=== PATIENT | female | born 1970 | race Hispanic/Latino ===

== ENCOUNTER 2019-05-17 09:39 | Day surgery (SDC) | payer MEDICARE ==
[2019-05-16 11:58] LABS: Absolute Lymphocytes (CBC) 2.2 K/uL (0.7-4.9); Basophils % 0.6 % (0-1.3); Hematocrit 38.3 % (36.0-45.0); Lymphocytes % 37.1 % (15.3-44.8); RBC Red Blood Cell Count 4.54 M/uL (3.86-4.86)
[2019-05-16 12:14] LABS: BUN Blood Urea Nitrogen 8 mg/dL (7-18); Bicarbonate 25 mmol/L (21-32); Glucose Level 179 mg/dL (74-106); Potassium 3.8 mmol/L (3.5-5.1); Sodium Level 143 mmol/L (136-145)
--- NOTE | 2019-05-16 12:33 | RAD REPORT ---
EXAM DESCRIPTION: RAD - Chest Pa And Lat (2 Views) - 05/16/2019 12:27 pm CLINICAL HISTORY: pre-op for surgery, soft tissue mass removal from the back COMPARISON: CHEST SINGLE VIEW dated 10/09/2011 TECHNIQUE: Frontal and lateral views of the chest were obtained. FINDINGS: The lungs are clear. Heart size is normal and central vasculature is within normal limit s. No pleural effusion or pneumothorax seen. No acute bony finding noted. No aortic abnormality. No significant change from comparison. IMPRESSION: No acute cardiopulmonary process.
--- NOTE | 2019-05-17 08:20 | EKG ---
Test Date: 2019-05-16 Test Time: 11:43:02 Leaf Size Picker: BETO MEASUREMENT RESULTS: Intervals: Rate: 70 MA: 152 QRSD: 90 QT: 414 QTc: 447 [place]: P: 34 MA: 152 QRS: -2 T: 30 INTERPRETIVE STATEMENTS: Normal sinus rhythm Minimal voltage criteria for LVH, may be normal variant Borderline ECG No previous ECG available for comparison Electronically Signed On 05-17-19 08:19:54 DOCTOR OF NURSE ANESTHESIA by Jean Carlos Escobedo
[2019-05-17] MEDS ORDERED: NA CHLORIDE 0.9% 1,000 ML ONE (09:51)
[2019-05-17] MEDS ORDERED: CIPROFLOXACIN 400mg IV 400 MG/200 ML BAG IV ONE (09:51)
[2019-05-17] MEDS ORDERED: BUPIVACAINE 0.5% PF 10 ML VIAL ONE (10:24)
[2019-05-17] MEDS ORDERED: FENTANYL CITR 100 MCG/2 ML ONE (10:28)
[2019-05-17] MEDS ORDERED: MIDAZOLAM HCL 2 MG/2 ML INJ ONE (10:28)
[2019-05-17] MEDS ORDERED: LIDOCAINE 1% MPF 5 ML VIAL ONE (10:28)
[2019-05-17] MEDS ORDERED: propofoL 200 MG/20 ML VIAL IV ONE (10:28)
[2019-05-17] MEDS ORDERED: KETOROLAC 30 MG/ML INJ ONE (11:33)
[2019-05-17] MEDS ORDERED: ONDANSETRON 4 MG/2 ML VIAL ONE (12:16)
--- NOTE | 2019-05-17 12:36 | P.BOP ---
Preoperative diagnosis: TEnder midback subQ mass Postoperative diagnosis: same Primary procedure: Excisional biopsy of TEnder midback subQ mass 8x8cm Auto Research Engineer: Tanna Villalta (Wade) Estimated blood loss: <10cc Specimen: mass Findings: Multilobulated mass Anesthesia: General Complications: None Drain(s): GAUTAM drain Transferred to: Recovery Room Condition: Good
[2019-05-17 14:43] VITALS: BP 108/60; TEMP 97.4; O2SAT 97
--- NOTE | 2019-05-17 23:50 | OP ---
Date of Procedure: 05/17/2019 Surgeon: Brendon Cavazos MD Assembler Engine: SIERRA Bowser. Diagnosis: Tender mid back subcutaneous mass. Postoperative Diagnosis: Tender mid back subcutaneous mass. Procedure: Excisional biopsy of tender mid back subcutaneous mass, 8 x 8 cm. Anesthesia: General plus local. Drains: GAUTAM #10. Indications: This is a case of a female who comes to us with a tender a large subcu mass. The benef its, alternatives, and risks of excision fully explained which include but are not limited to infecti on, bleeding, damage to adjacent structures, anesthesia complication, recurrence, PR, and even . She also understands this may not relieve the symptoms. She might need more than one surgical inte rvention. She understood, signed a consent. The area of concern was marked by me and the patient in the holding room. Description Of Procedure: Patient was brought to the operating room, placed in supine position. Ane sthesia was induced without complication. Patient was placed in lateral decubitus position with prop er protection. Back was prepped and draped in a sterile fashion. A time-out was called. An incisio n was made over the area. The incision was carried down to the deep subcutaneous tissue. When we fe lt the mass, this mass was multilobulated, so we have to use mainly blunt dissection to make sure all this finger-like projection comes with the specimen in 1 unit. This took a significant amount of ti me, left a large space empty in that area. It goes well away down to muscle, get attached to the mus davidson fascia but does not penetrate the muscle. Area was irrigated. This left a large cavity in that area. We proceeded to put a GAUTAM drain through another exit point, secured in place with 3-0 nylon in the skin. The area was closed with first 3-0 chromic subcutaneous, then 4-[address] Steri-Strips place d over the area. Patient tolerated the procedure well. Sponge count and instrument counts were eduardo ect. Patient was sent to recovery in stable condition. HM/MODL Voice ID: [id number] Report ID: [id number]
--- NOTE | 2019-05-17 23:50 | DS ---
Date of Discharge: 05/17/2019 Diagnosis: Tender mid back subcutaneous mass. Procedure: Excisional biopsy of tender mid back subcutaneous mass, 8 x 8 cm. Disposition: Home. Activity: As tolerated. No heavy lifting. Followup: In my office in 1 week. Call for appointment [phone]. GAUTAM drain record output 48 hours. Medications: See orders. DIMAS/NGOZI Voice ID: [id number] Report ID: [id number]
== END 2019-05-17 14:05 | disposition home or self-care (01) ==
LOC: OR 09:39
PROVIDERS: ATTEND Surgery
PROC: 0JB70ZZ Excision of Back Subcutaneous Tissue and Fascia, Open Approach (ICD-10-PCS; principal; 2019-05-17 11:00)
DX: R22.2 Localized swelling, mass and lump, trunk (principal); E11.9 Type 2 diabetes mellitus without complications; I10 Essential (primary) hypertension; E07.9 Disorder of thyroid, unspecified; Z88.0 Allergy status to penicillin; Z80.3 Family history of malignant neoplasm of breast; Z83.3 Family history of diabetes mellitus
CPT/HCPCS: 11406; 93005; 85025; 80048; 36415; 84703; 82947 ×2; 88304; 71046; J2704; J2250; J3010; J7030; J2405; J0744

== ENCOUNTER 2022-02-09 13:08 | Inpatient (IN) | payer MEDICARE ==
--- OUTSIDE RECORDS SUMMARY | 2022-02-09 13:15 | XMS REPORT | Continuity of Care Document ---
:1970 Author Organization [facility] t Address [address] [place] [address] Care Team Providers Name Role Phone Vale Mildred Attending Clinician Unavailable Radha Attending Clinician Unavailable ALEXANDER Attending Clinician Unavailable Radha Admitting Clinician Unavailable ALEXANDER Admitting Clinician Unavailable Payers Payer Name Policy Type Policy Number Effective Date Expiration Date S clifton [facility] [employer] [id number] 2021 (MEDICARE 00:00:00 REPLACEMENT HMO) Problems Condition Condition Condition Status Onset Resolution Last Treating Co mments Source Name Details Category Date Date Treatment Clinician Date [id number] Primary Problem Comm on osteoarthr [facility] itis of - [facility] left knee [facility] [id number] Type 2 Problem Common diabetes [facility] mellitus - [facility] with [facility] [id number] Type 2 Problem Commo n 9102 diabetes Spirit mellitus - [facility] with other [facility] complic[facility] on [id number] Other Problem Common chronic [facility] pain - [facility] [id number] Hypothyroi Problem Com mon dism, [facility] unspecifie - [facility] d type [facility] [id number] Lumbago Problem Comm on with Spirit sciatica, - [facility] right side [facility] [id number] prison Problem Com mon (current) [facility] use of - [facility] insulin [facility] [id number] Mixed Problem Common hyperlipid Spirit emia - CHI [facility] [id number] Lumbago Problem Commo n with [facility] sciatica, - [facility] left side [facility] [id number] Essential Problem Comm on (primary) [facility] hypertensi - [facility] on [facility] [id number] Glaucoma Problem Commo n of both [facility] eyes, - [facility] unspecifie [facility] Allergies, Adverse Reactions, Alerts Allergy Allergy Status Severity Reaction(s) Onset Inactive Treating Comm ents Source Name Type Date Date Clinician penicill penicill Active Unknown Commo n in V in V [facility] Social History Social Habit Start Date Stop Date Quantity Comments Source History of Tobacco Use Co mmon [facility] Sex Assigned At Com mon [facility] Smoking Status Start Date Stop Date Source Never Smoker Common [facility] Medications Ordered Filled Start Stop Current Ordering Indication Dosage Frequency Signature Comments Components Source Medication Medication Date Date Medication? Clinician (SIG) Name Name Levothyroxi Levothyroxi 2021-03 No QD Levothyrox ne Sodium ne Sodium 0-06 ine Sodium 137 MCG 137 MCG 00:00: 137 MCG 00 Atorvastati Atorvastati 2021-03 No 1{table QD Atorvastat n Calcium n Calcium 0-06 t} in Calcium 40 MG 40 MG 00:00: 40 MG 00 Atorvastati Atorvastati 2021-03 No 1{table QD Atorvastat n Calcium n Calcium 0-06 t} in Calcium 40 MG 40 MG 00:00: 40 MG 00 Levothyroxi Levothyroxi 2021-03 No QD Levothyrox ne Sodium ne Sodium 0-06 ine Sodium 137 MCG 137 MCG 00:00: 137 MCG 00 Levothyroxi Levothyroxi 2021-03 No QD Levothyrox ne Sodium ne Sodium 0-06 ine Sodium 137 MCG 137 MCG 00:00: 137 MCG 00 Atorvastati Atorvastati 2021-03 No 1{table QD Atorvastat n Calcium n Calcium 0-06 t} in Calcium 40 MG 40 MG 00:00: 40 MG 00 Atorvastati Atorvastati 2021-03 No 1{table QD Atorvastat n Calcium n Calcium 0-06 t} in Calcium 40 MG 40 MG 00:00: 40 MG 00 Levothyroxi Levothyroxi 2021-03 No QD Levothyrox ne Sodium ne Sodium 0-06 ine Sodium 137 MCG 137 MCG 00:00: 137 MCG 00 Naropin Naropin 2021-0 No 5mg Common (Ropivacain (Ropivacain 9-08 S pirit e HCl) e HCl) 00:00: - [facility]I 00 [facility] Kenalog Kenalog 2021-0 No 40mg Common (Triamcinol (Triamcinol 9-08 S pirit one) one) 00:00: - [facility]I 00 [facility] Naropin Naropin 2-0 No 5mg Common (Ropivacain (Ropivacain 9-08 S pirit e HCl) e HCl) 00:00: - [facility]I 00 [facility] Kenalog Kenalog 2021-0 No 40mg Common (Triamcinol (Triamcinol 9-08 S pirit one) one) 00:00: - [facility]I 00 [facility] Naropin Naropin 2-0 No 5mg Common (Ropivacain (Ropivacain 9-08 S pirit e HCl) e HCl) 00:00: - [facility]I 00 [facility] Kenalog Kenalog 2021-0 No 40mg Common (Triamcinol (Triamcinol 9-08 S pirit one) one) 00:00: - [facility]I 00 [facility] Naropin Naropin 2-0 No 5mg Common (Ropivacain (Ropivacain 9-08 S pirit e HCl) e HCl) 00:00: - [facility]I 00 [facility] Kenalog Kenalog 2021-0 No 40mg Common (Triamcinol (Triamcinol 9-08 S pirit one) one) 00:00: - [facility]I 00 [facility] Naropin Naropin 2-0 No 5mg Common (Ropivacain (Ropivacain 9-08 S pirit e HCl) e HCl) 00:00: - CHI 00 [facility] Kenalog Kenalog 2021-0 No 40mg Common (Triamcinol (Triamcinol 9-08 S pirit one) one) 00:00: - [facility]I 00 [facility] Naropin Naropin 2-0 No 5mg Common (Ropivacain (Ropivacain 9-08 S pirit e HCl) e HCl) 00:00: - [facility]I 00 [facility] Kenalog Kenalog 2021-0 No 40mg Common (Triamcinol (Triamcinol 9-08 S pirit one) one) 00:00: - [facility]I 00 [facility] Naropin Naropin 2-0 No 5mg Common (Ropivacain (Ropivacain 9-08 S pirit e HCl) e HCl) 00:00: - [facility]I 00 [facility] Kenalog Kenalog 2021-0 No 40mg Common (Triamcinol (Triamcinol 9-08 S pirit one) one) 00:00: - [facility] 00 [facility] traMADol traMADol 2021-0 No 1{table QD traMADol HCl 50 MG HCl 50 MG 8-23 t_as_ne HCl 50 MG 00:00: eded} 00 traMADol traMADol 2-0 No 1{table QD traMADol HCl 50 MG HCl 50 MG 8-23 t_as_ne HCl 50 MG 00:00: eded} 00 traMADol traMADol 2-0 No 1{table QD traMADol HCl 50 MG HCl 50 MG 8-23 t_as_ne HCl 50 MG 00:00: eded} 00 traMADol traMADol 2-0 No 1{table QD traMADol HCl 50 MG HCl 50 MG 8-23 t_as_ne HCl 50 MG 00:00: eded} 00 traMADol traMADol 2-0 No 1{table QD traMADol HCl 50 MG HCl 50 MG 8-23 t_as_ne HCl 50 MG 00:00: eded} 00 traMADol traMADol 2-0 No 1{table QD traMADol HCl 50 MG HCl 50 MG 8-23 t_as_ne HCl 50 MG 00:00: eded} 00 traMADol traMADol 2-0 No 1{table QD traMADol HCl 50 MG HCl 50 MG 8-23 t_as_ne HCl 50 MG 00:00: eded} 00 traMADol traMADol 2-0 No 1{table QD traMADol HCl 50 MG HCl 50 MG 8-23 t_as_ne HCl 50 MG 00:00: eded} 00 traMADol traMADol 2-0 No 1{table QD traMADol HCl 50 MG HCl 50 MG 8-23 t_as_ne HCl 50 MG 00:00: eded} 00 traMADol traMADol No 1{table QD traMADol HCl 50 MG HCl 50 MG 8-23 t_as_ne HCl 50 MG 00:00: eded} 00 traMADol traMADol No 1{table QD traMADol HCl 50 MG HCl 50 MG 8-23 t_as_ne HCl 50 MG 00:00: eded} 00 Lisinopril Lisinopril No Lisinopril 40 MG 40 MG 40 MG Spironolact Spironolact No 1{table QD Spironolac one-HCTZ one-HCTZ t} tone-HCTZ 25-25 MG 25-25 MG 25-25 MG Tresiba Tresiba No BID Tresiba FlexTouch FlexTouch FlexTouch 200 UNIT/ML 200 UNIT/ML 200 UNIT/ML Gabapentin Gabapentin No Gabapentin 300 MG 300 MG 300 MG Levothyroxi Levothyroxi No QD Levothyrox ne Sodium ne Sodium ine Sodium 112 MCG 112 MCG 112 MCG Tresiba Tresiba No BID Tresiba FlexTouch FlexTouch FlexTouch 200 UNIT/ML 200 UNIT/ML 200 UNIT/ML Latanoprost Latanoprost No 1{drop_ QD Latanopros 0.005 % 0.005 % into_af t 0.005 % fected_ eye_in_ the_marye david} Atorvastati Atorvastati No Atorvastat n Calcium n Calcium in Calcium 20 MG 20 MG 20 MG Carvedilol Carvedilol No 1{table BID Carvedilol 6.25 MG 6.25 MG t_with_ 6.25 MG food} Gabapentin Gabapentin No Gabapentin 300 MG 300 MG 300 MG NovoLOG NovoLOG No NovoLOG FlexPen 100 FlexPen 100 FlexPen UNIT/ML UNIT/ML 100 UNIT/ML Lisinopril Lisinopril No Lisinopril 20 MG 20 MG 20 MG Levothyroxi Levothyroxi No QD Levothyrox ne Sodium ne Sodium ine Sodium 112 MCG 112 MCG 112 MCG Tresiba Tresiba No BID Tresiba FlexTouch FlexTouch FlexTouch 200 UNIT/ML 200 UNIT/ML 200 UNIT/ML Latanoprost Latanoprost No 1{drop_ QD Latanopros 0.005 % 0.005 % into_af t 0.005 % fected_ eye_in_ the_eve david} Atorvastati Atorvastati No Atorvastat n Calcium n Calcium in Calcium 20 MG 20 MG 20 MG Carvedilol Carvedilol No 1{table BID Carvedilol 6.25 MG 6.25 MG t_with_ 6.25 MG food} Gabapentin Gabapentin No Gabapentin 300 MG 300 MG 300 MG NovoLOG NovoLOG No NovoLOG FlexPen 100 FlexPen 100 FlexPen UNIT/ML UNIT/ML 100 UNIT/ML Lisinopril Lisinopril No Lisinopril 20 MG 20 MG 20 MG Levothyroxi Levothyroxi No QD Levothyrox ne Sodium ne Sodium ine Sodium 112 MCG 112 MCG 112 MCG Tresiba Tresiba No BID Tresiba FlexTouch FlexTouch FlexTouch 200 UNIT/ML 200 UNIT/ML 200 UNIT/ML NovoLOG NovoLOG No NovoLOG FlexPen 100 FlexPen 100 FlexPen UNIT/ML UNIT/ML 100 UNIT/ML Latanoprost Latanoprost No 1{drop_ QD Latanopros 0.005 % 0.005 % into_af t 0.005 % fected_ eye_in_ the_eve david} Lisinopril Lisinopril No Lisinopril 20 MG 20 MG 20 MG Atorvastati Atorvastati No Atorvastat n Calcium n Calcium in Calcium 20 MG 20 MG 20 MG Gabapentin Gabapentin No Gabapentin 300 MG 300 MG 300 MG Carvedilol Carvedilol No 1{table BID Carvedilol 6.25 MG 6.25 MG t_with_ 6.25 MG food} Lisinopril Lisinopril No Lisinopril 20 MG 20 MG 20 MG Carvedilol Carvedilol No 1{table BID Carvedilol 6.25 MG 6.25 MG t_with_ 6.25 MG food} Levothyroxi Levothyroxi No QD Levothyrox ne Sodium ne Sodium ine Sodium 112 MCG 112 MCG 112 MCG NovoLOG NovoLOG No NovoLOG FlexPen 100 FlexPen 100 FlexPen UNIT/ML UNIT/ML 100 UNIT/ML Atorvastati Atorvastati No Atorvastat n Calcium n Calcium in Calcium 20 MG 20 MG 20 MG Tresiba Tresiba No BID Tresiba FlexTouch FlexTouch FlexTouch 200 UNIT/ML 200 UNIT/ML 200 UNIT/ML Gabapentin Gabapentin No Gabapentin 300 MG 300 MG 300 MG Latanoprost Latanoprost No 1{drop_ QD Latanopros 0.005 % 0.005 % into_af t 0.005 % fected_ eye_in_ the_eve david} Tresiba Tresiba No BID Tresiba FlexTouch FlexTouch FlexTouch 200 UNIT/ML 200 UNIT/ML 200 UNIT/ML Atorvastati Atorvastati No Atorvastat n Calcium n Calcium in Calcium 20 MG 20 MG 20 MG Lisinopril Lisinopril No Lisinopril 40 MG 40 MG 40 MG Latanoprost Latanoprost No 1{drop_ QD Latanopros 0.005 % 0.005 % into_af t 0.005 % fected_ eye_in_ the_eve david} Levothyroxi Levothyroxi No QD Levothyrox ne Sodium ne Sodium ine Sodium 112 MCG 112 MCG 112 MCG Carvedilol Carvedilol No 1{table BID Carvedilol 12.5 MG 12.5 MG t_with_ 12.5 MG food} Spironolact Spironolact No 1{table QD Spironolac one-HCTZ one-HCTZ t} tone-HCTZ 25-25 MG 25-25 MG 25-25 MG NovoLOG NovoLOG No NovoLOG FlexPen 100 FlexPen 100 FlexPen UNIT/ML UNIT/ML 100 UNIT/ML Gabapentin Gabapentin No Gabapentin 300 MG 300 MG 300 MG Tresiba Tresiba No BID Tresiba FlexTouch FlexTouch FlexTouch 200 UNIT/ML 200 UNIT/ML 200 UNIT/ML Atorvastati Atorvastati No Atorvastat n Calcium n Calcium in Calcium 20 MG 20 MG 20 MG Lisinopril Lisinopril No Lisinopril 40 MG 40 MG 40 MG Latanoprost Latanoprost No 1{drop_ QD Latanopros 0.005 % 0.005 % into_af t 0.005 % fected_ eye_in_ the_eve david} Levothyroxi Levothyroxi No QD Levothyrox ne Sodium ne Sodium ine Sodium 112 MCG 112 MCG 112 MCG Carvedilol Carvedilol No 1{table BID Carvedilol 12.5 MG 12.5 MG t_with_ 12.5 MG food} Spironolact Spironolact No 1{table QD Spironolac one-HCTZ one-HCTZ t} tone-HCTZ 25-25 MG 25-25 MG 25-25 MG NovoLOG NovoLOG No NovoLOG FlexPen 100 FlexPen 100 FlexPen UNIT/ML UNIT/ML 100 UNIT/ML Gabapentin Gabapentin No Gabapentin 300 MG 300 MG 300 MG Tresiba Tresiba No BID Tresiba FlexTouch FlexTouch FlexTouch 200 UNIT/ML 200 UNIT/ML 200 UNIT/ML Atorvastati Atorvastati No Atorvastat n Calcium n Calcium in Calcium 20 MG 20 MG 20 MG Lisinopril Lisinopril No Lisinopril 40 MG 40 MG 40 MG Latanoprost Latanoprost No 1{drop_ QD Latanopros 0.005 % 0.005 % into_af t 0.005 % fected_ eye_in_ the_eve david} Levothyroxi Levothyroxi No QD Levothyrox ne Sodium ne Sodium ine Sodium 112 MCG 112 MCG 112 MCG Carvedilol Carvedilol No 1{table BID Carvedilol 12.5 MG 12.5 MG t_with_ 12.5 MG food} Spironolact Spironolact No 1{table QD Spironolac one-HCTZ one-HCTZ t} tone-HCTZ 25-25 MG 25-25 MG 25-25 MG NovoLOG NovoLOG No NovoLOG FlexPen 100 FlexPen 100 FlexPen UNIT/ML UNIT/ML 100 UNIT/ML Gabapentin Gabapentin No Gabapentin 300 MG 300 MG 300 MG Tresiba Tresiba No BID Tresiba FlexTouch FlexTouch FlexTouch 200 UNIT/ML 200 UNIT/ML 200 UNIT/ML Spironolact Spironolact No 1{table QD Spironolac one-HCTZ one-HCTZ t} tone-HCTZ 25-25 MG 25-25 MG 25-25 MG Levothyroxi Levothyroxi No QD Levothyrox ne Sodium ne Sodium ine Sodium 112 MCG 112 MCG 112 MCG Atorvastati Atorvastati No Atorvastat n Calcium n Calcium in Calcium 20 MG 20 MG 20 MG Lisinopril Lisinopril No Lisinopril 40 MG 40 MG 40 MG Carvedilol Carvedilol No 1{table BID Carvedilol 12.5 MG 12.5 MG t_with_ 12.5 MG food} NovoLOG NovoLOG No NovoLOG FlexPen 100 FlexPen 100 FlexPen UNIT/ML UNIT/ML 100 UNIT/ML Latanoprost Latanoprost No 1{drop_ QD Latanopros 0.005 % 0.005 % into_af t 0.005 % fected_ eye_in_ the_eve david} Gabapentin Gabapentin No Gabapentin 300 MG 300 MG 300 MG Tresiba Tresiba No BID Tresiba FlexTouch FlexTouch FlexTouch 200 UNIT/ML 200 UNIT/ML 200 UNIT/ML Spironolact Spironolact No 1{table QD Spironolac one-HCTZ one-HCTZ t} tone-HCTZ 25-25 MG 25-25 MG 25-25 MG Levothyroxi Levothyroxi No QD Levothyrox ne Sodium ne Sodium ine Sodium 112 MCG 112 MCG 112 MCG Atorvastati Atorvastati No Atorvastat n Calcium n Calcium in Calcium 20 MG 20 MG 20 MG Lisinopril Lisinopril No Lisinopril 40 MG 40 MG 40 MG Carvedilol Carvedilol No 1{table BID Carvedilol 12.5 MG 12.5 MG t_with_ 12.5 MG food} NovoLOG NovoLOG No NovoLOG FlexPen 100 FlexPen 100 FlexPen UNIT/ML UNIT/ML 100 UNIT/ML Latanoprost Latanoprost No 1{drop_ QD Latanopros 0.005 % 0.005 % into_af t 0.005 % fected_ eye_in_ the_eve david} Gabapentin Gabapentin No Gabapentin 300 MG 300 MG 300 MG Tresiba Tresiba No BID Tresiba FlexTouch FlexTouch FlexTouch 200 UNIT/ML 200 UNIT/ML 200 UNIT/ML Spironolact Spironolact No 1{table QD Spironolac one-HCTZ one-HCTZ t} tone-HCTZ 25-25 MG 25-25 MG 25-25 MG Levothyroxi Levothyroxi No QD Levothyrox ne Sodium ne Sodium ine Sodium 112 MCG 112 MCG 112 MCG Atorvastati Atorvastati No Atorvastat n Calcium n Calcium in Calcium 20 MG 20 MG 20 MG Lisinopril Lisinopril No Lisinopril 40 MG 40 MG 40 MG Carvedilol Carvedilol No 1{table BID Carvedilol 12.5 MG 12.5 MG t_with_ 12.5 MG food} NovoLOG NovoLOG No NovoLOG FlexPen 100 FlexPen 100 FlexPen UNIT/ML UNIT/ML 100 UNIT/ML Latanoprost Latanoprost No 1{drop_ QD Latanopros 0.005 % 0.005 % into_af t 0.005 % fected_ eye_in_ the_eve david} Gabapentin Gabapentin No Gabapentin 300 MG 300 MG 300 MG Tresiba Tresiba No BID Tresiba FlexTouch FlexTouch FlexTouch 200 UNIT/ML 200 UNIT/ML 200 UNIT/ML Spironolact Spironolact No 1{table QD Spironolac one-HCTZ one-HCTZ t} tone-HCTZ 25-25 MG 25-25 MG 25-25 MG Levothyroxi Levothyroxi No QD Levothyrox ne Sodium ne Sodium ine Sodium 112 MCG 112 MCG 112 MCG Atorvastati Atorvastati No Atorvastat n Calcium n Calcium in Calcium 20 MG 20 MG 20 MG Lisinopril Lisinopril No Lisinopril 40 MG 40 MG 40 MG Carvedilol Carvedilol No 1{table BID Carvedilol 12.5 MG 12.5 MG t_with_ 12.5 MG food} NovoLOG NovoLOG No NovoLOG FlexPen 100 FlexPen 100 FlexPen UNIT/ML UNIT/ML 100 UNIT/ML Latanoprost Latanoprost No 1{drop_ QD Latanopros 0.005 % 0.005 % into_af t 0.005 % fected_ eye_in_ the_eve david} Gabapentin Gabapentin No Gabapentin 300 MG 300 MG 300 MG Tresiba Tresiba No BID Tresiba FlexTouch FlexTouch FlexTouch 200 UNIT/ML 200 UNIT/ML 200 UNIT/ML Levothyroxi Levothyroxi No QD Levothyrox ne Sodium ne Sodium ine Sodium 112 MCG 112 MCG 112 MCG Carvedilol Carvedilol No 1{table BID Carvedilol 12.5 MG 12.5 MG t_with_ 12.5 MG food} Gabapentin Gabapentin No Gabapentin 300 MG 300 MG 300 MG NovoLOG NovoLOG No NovoLOG FlexPen 100 FlexPen 100 FlexPen UNIT/ML UNIT/ML 100 UNIT/ML Lisinopril Lisinopril No Lisinopril 40 MG 40 MG 40 MG Spironolact Spironolact No 1{table QD Spironolac one-HCTZ one-HCTZ t} tone-HCTZ 25-25 MG 25-25 MG 25-25 MG Atorvastati Atorvastati No Atorvastat n Calcium n Calcium in Calcium 20 MG 20 MG 20 MG Latanoprost Latanoprost No 1{drop_ QD Latanopros 0.005 % 0.005 % into_af t 0.005 % fected_ eye_in_ the_eve david} Tresiba Tresiba No BID Tresiba FlexTouch FlexTouch FlexTouch 200 UNIT/ML 200 UNIT/ML 200 UNIT/ML Levothyroxi Levothyroxi No QD Levothyrox ne Sodium ne Sodium ine Sodium 112 MCG 112 MCG 112 MCG Carvedilol Carvedilol No 1{table BID Carvedilol 12.5 MG 12.5 MG t_with_ 12.5 MG food} Gabapentin Gabapentin No Gabapentin 300 MG 300 MG 300 MG NovoLOG NovoLOG No NovoLOG FlexPen 100 FlexPen 100 FlexPen UNIT/ML UNIT/ML 100 UNIT/ML Lisinopril Lisinopril No Lisinopril 40 MG 40 MG 40 MG Spironolact Spironolact No 1{table QD Spironolac one-HCTZ one-HCTZ t} tone-HCTZ 25-25 MG 25-25 MG 25-25 MG Atorvastati Atorvastati No Atorvastat n Calcium n Calcium in Calcium 20 MG 20 MG 20 MG Latanoprost Latanoprost No 1{drop_ QD Latanopros 0.005 % 0.005 % into_af t 0.005 % fected_ eye_in_ the_eve david} Gabapentin Gabapentin No Gabapentin 300 MG 300 MG 300 MG Lisinopril Lisinopril No Lisinopril 40 MG 40 MG 40 MG NovoLOG NovoLOG No NovoLOG FlexPen 100 FlexPen 100 FlexPen UNIT/ML UNIT/ML 100 UNIT/ML Spironolact Spironolact No 1{table QD Spironolac one-HCTZ one-HCTZ t} tone-HCTZ 25-25 MG 25-25 MG 25-25 MG Carvedilol Carvedilol No 1{table BID Carvedilol 12.5 MG 12.5 MG t_with_ 12.5 MG food} Latanoprost Latanoprost No 1{drop_ QD Latanopros 0.005 % 0.005 % into_af t 0.005 % fected_ eye_in_ the_eve david} Tresiba Tresiba No BID Tresiba FlexTouch FlexTouch FlexTouch 200 UNIT/ML 200 UNIT/ML 200 UNIT/ML NovoLOG NovoLOG No NovoLOG FlexPen 100 FlexPen 100 FlexPen UNIT/ML UNIT/ML 100 UNIT/ML Latanoprost Latanoprost No 1{drop_ QD Latanopros 0.005 % 0.005 % into_af t 0.005 % fected_ eye_in_ the_eve david} Carvedilol Carvedilol No 1{table BID Carvedilol 12.5 MG 12.5 MG t_with_ 12.5 MG food} Lisinopril Lisinopril No Lisinopril 40 MG 40 MG 40 MG Spironolact Spironolact No 1{table QD Spironolac one-HCTZ one-HCTZ t} tone-HCTZ 25-25 MG 25-25 MG 25-25 MG Tresiba Tresiba No BID Tresiba FlexTouch FlexTouch FlexTouch 200 UNIT/ML 200 UNIT/ML 200 UNIT/ML Gabapentin Gabapentin No Gabapentin 300 MG 300 MG 300 MG Tresiba Tresiba No BID Tresiba FlexTouch FlexTouch FlexTouch 200 UNIT/ML 200 UNIT/ML 200 UNIT/ML Levothyroxi Levothyroxi No QD Levothyrox ne Sodium ne Sodium ine Sodium 112 MCG 112 MCG 112 MCG Carvedilol Carvedilol No 1{table BID Carvedilol 12.5 MG 12.5 MG t_with_ 12.5 MG food} Gabapentin Gabapentin No Gabapentin 300 MG 300 MG 300 MG NovoLOG NovoLOG No NovoLOG FlexPen 100 FlexPen 100 FlexPen UNIT/ML UNIT/ML 100 UNIT/ML Lisinopril Lisinopril No Lisinopril 40 MG 40 MG 40 MG Spironolact Spironolact No 1{table QD Spironolac one-HCTZ one-HCTZ t} tone-HCTZ 25-25 MG 25-25 MG 25-25 MG Atorvastati Atorvastati No Atorvastat n Calcium n Calcium in Calcium 20 MG 20 MG 20 MG Latanoprost Latanoprost No 1{drop_ QD Latanopros 0.005 % 0.005 % into_af t 0.005 % fected_ eye_in_ the_eve david} Gabapentin Gabapentin No Gabapentin 300 MG 300 MG 300 MG Lisinopril Lisinopril No Lisinopril 40 MG 40 MG 40 MG NovoLOG NovoLOG No NovoLOG FlexPen 100 FlexPen 100 FlexPen UNIT/ML UNIT/ML 100 UNIT/ML Spironolact Spironolact No 1{table QD Spironolac one-HCTZ one-HCTZ t} tone-HCTZ 25-25 MG 25-25 MG 25-25 MG Carvedilol Carvedilol No 1{table BID Carvedilol 12.5 MG 12.5 MG t_with_ 12.5 MG food} Latanoprost Latanoprost No 1{drop_ QD Latanopros 0.005 % 0.005 % into_af t 0.005 % fected_ eye_in_ the_eve david} Tresiba Tresiba No BID Tresiba FlexTouch FlexTouch FlexTouch 200 UNIT/ML 200 UNIT/ML 200 UNIT/ML NovoLOG NovoLOG No NovoLOG FlexPen 100 FlexPen 100 FlexPen UNIT/ML UNIT/ML 100 UNIT/ML Latanoprost Latanoprost No 1{drop_ QD Latanopros 0.005 % 0.005 % into_af t 0.005 % fected_ eye_in_ the_eve david} Carvedilol Carvedilol No 1{table BID Carvedilol 12.5 MG 12.5 MG t_with_ 12.5 MG food} Vital Signs Vital Name Observation Time Observation Value Comments Source height 2022-01-08 10:30:00 63 [in_i] [facility] weight 2022-01-08 10:30:00 223 [lb_av] [facility] temperature 2022-01-08 10:30:00 97.5 [degF] [facility] bmi 2022-01-08 10:30:00 39.5 kg/m2 [facility] blood pressure 2022-01-08 10:30:00 112 mm[Hg] [facility] blood pressure 2022-01-08 10:30:00 70 mm[Hg] [facility] - [facility] height 2021-12-25 10:00:00 63 [in_i] [facility] weight 2021-12-25 10:00:00 223 [lb_av] [facility] bmi 2021-12-25 10:00:00 39.5 kg/m2 [facility] height 2021-11-27 11:15:00 63 [in_i] [facility] weight 2021-11-27 11:15:00 223 [lb_av] [facility] temperature 2021-11-27 11:15:00 97.6 [degF] [facility] bmi 2021-11-27 11:15:00 39.5 kg/m2 [facility] blood pressure 2021-11-27 11:15:00 120 mm[Hg] [facility] blood pressure 2021-11-27 11:15:00 82 mm[Hg] [facility] height 2021-11-10 08:30:00 63 [in_i] [facility] weight 2021-11-10 08:30:00 223.3 [lb_av] [facility] temperature 2021-11-10 08:30:00 97.2 [degF] [facility] bmi 2021-11-10 08:30:00 39.55 kg/m2 [facility] blood pressure 2021-11-10 08:30:00 132 mm[Hg] [facility] blood pressure 2021-11-10 08:30:00 84 mm[Hg] [facility] height 2021-10-29 14:40:00 63 [in_i] [facility] weight 2021-10-29 14:40:00 220 [lb_av] [facility] temperature 2021-10-29 14:40:00 97.5 [degF] [facility] bmi 2021-10-29 14:40:00 38.97 kg/m2 [facility] oximetry 2021-10-29 14:40:00 97 % [facility] 2021-10-29 14:40:00 17 /min [facility] on [facility] blood pressure 2021-10-29 14:40:00 130 mm[Hg] [facility] blood pressure 2021-10-29 14:40:00 74 mm[Hg] [facility] height 2021-10-29 15:00:00 63 [in_i] [facility] weight 2021-10-29 15:00:00 220 [lb_av] [facility] temperature 2021-10-29 15:00:00 97.5 [degF] [facility] bmi 2021-10-29 15:00:00 38.97 kg/m2 [facility] oximetry 2021-10-29 15:00:00 97 % [facility] respiratory rate 2021-10-29 15:00:00 17 /min Comm on [facility] blood pressure 2021-10-29 15:00:00 130 mm[Hg] [facility] - systolic [facility] blood pressure 2021-10-29 15:00:00 74 mm[Hg] [facility] height 2021-07-28 10:00:00 63 [in_i] [facility] weight 2021-07-28 10:00:00 214 [lb_av] [facility] temperature 2021-07-28 10:00:00 97.0 [degF] [facility] bmi 2021-07-28 10:00:00 37.9 kg/m2 [facility] oximetry 2021-07-28 10:00:00 96 % [facility] respiratory rate 2021-07-28 10:00:00 16 /min Comm on [facility] blood pressure 2021-07-28 10:00:00 136 mm[Hg] Common [facility] - systolic [facility] blood pressure 2021-07-28 10:00:00 84 mm[Hg] Common [facility] - diastolic [facility] Procedures This patient has no known procedures. Encounters Start End Encounter Admission Attending Care Care Encounter Source Date/Time Date/Time Type Type Clinicians Facility Department ID 2022-01-11 Outpatient [facility], STLMLC STLC [id number] Common 18:45:01 [facility] 2021-12-25 Outpatient Collazo, STLMLC STLMLC [id number] Common 08:15:02 [facility] 2021-12-08 Outpatient Collazo, STLMLC STLMLC [id number] Common 09:05:04 [facility] 2021-11-10 Outpatient Collazo, STLMLC STLMLC [id number] Common 10:54:02 [facility] 2021-11-03 Outpatient Collazo, STLMLC STLMLC [id number] Common 10:12:01 [facility] 2021-10-15 Outpatient Collazo, STLMLC STLMLC [id number] Common 08:21:01 [facility] 2021-10-09 Outpatient Collazo, STLMLC STLMLC [id number] Common 10:20:02 [facility] 2021-10-08 Outpatient Collazo, STLMLC STLMLC [id number] Common 08:40:03 [facility] 2021-07-28 Outpatient Collazo, STLMLC STLMLC [id number] Common 11:15:03 [facility] 2022-01-08 2022-01-08 OFFICE STLMLC STLMLC [id number] Co mmon 00:00:00 00:00:00 VISIT EST Spir it PT LEVEL 3 [facility] 2021-12-25 2021-12-25 OFFICE STLMLC STLMLC [id number] Co mmon 00:00:00 00:00:00 VISIT [facility] PT - CHI LEVEL 4 [facility] 2021-12-11 2021-12-11 (TEL) STLMLC STLMLC [id number] Co mmon 00:00:00 00:00:00 [facility] 2021-11-27 2021-11-27 OFFICE STLMLC STLMLC [id number] Co mmon 00:00:00 00:00:00 VISIT [facility] PT - CHI LEVEL 4 [facility] 2021-11-20 2021-11-20 (TEL) STLMLC STLMLC [id number] Co mmon 00:00:00 00:00:00 [facility] 2021-11-11 2021-11-11 (TEL) STLMLC STLMLC [id number] Co mmon 00:00:00 00:00:00 [facility] 2021-11-10 2021-11-10 Outpatient Iwill_Alaina ALEXANDRA DMG [id number] 00:00:00 00:00:00 [id number] 2021-11-10 2021-11-10 OFFICE STLMLC STLMLC [id number] Co mmon 00:00:00 00:00:00 VISIT NEW [facility] it PT LEVEL 4 [facility] 2021-11-10 2021-11-10 (TEL) STLMLC STLMLC [id number] Co mmon 00:00:00 00:00:00 [facility] 2021-11-03 2021-11-03 (TEL) STLMLC STLMLC [id number] Co mmon 00:00:00 00:00:00 [facility] 2021-10-29 2021-10-29 OFFICE STLMLC STLMLC [id number] Co mmon 00:00:00 00:00:00 VISIT Corey ESTAB PT - CHI LEVEL 4 [facility] 2021-10-29 2021-10-29 (MCR WELL) STLMLC STLMLC [id number] Common 00:00:00 00:00:00 Medicare [facility] 2021-10-27 2021-10-27 (TEL) STLMLC STLMLC [id number] Co mmon 00:00:00 00:00:00 [facility] 2021-10-03 2021-10-03 Outpatient DMG DM [id number] [facility] 03:02:00 03:02:00 [id number] [facility] 2021-10-02 2021-10-02 Outpatient YARA GANNON [address] [place] 04:37:00 04:37:00 HN 0714 da [facility] 2021-09-26 2021-09-26 (TEL) STLMLC STLMLC [id number] Co mmon 00:00:00 00:00:00 [facility] 2021-09-03 2021-09-03 (TEL) STLMLC STLMLC [id number] Co mmon 00:00:00 00:00:00 [facility] 2021-07-28 2021-07-28 OFFICE STLMLC STLMLC [id number] Co mmon 00:00:00 00:00:00 VISIT NEW Spir it PT LEVEL 4 [facility] 2021-06-25 2021-06-25 Outpatient DMG DMG [id number] [facility] 09:01:00 09:01:00 [id number] Medica l Group Results This patient has no known results.
[2022-02-09] MEDS ORDERED: NA CHLORIDE 0.9% 1,000 ML ONE ×3 (13:41→14:49)
[2022-02-09 13:53] LABS: Absolute Lymphocytes (CBC) 1.8 K/uL (0.7-4.9); Hematocrit 34.6 % (36.0-45.0); Lymphocytes % 25.6 % (15.3-44.8); MPV 8.6 fL (7.6-11.3); RBC Red Blood Cell Count 3.93 M/uL (3.86-4.86)
[2022-02-09 14:13] LABS: Albumin 3.3 g/dL (3.4-5.0); Bilirubin Total 0.4 mg/dL (0.2-1.0); Magnesium 1.9 mg/dL (1.8-2.4); Potassium 3.8 mmol/L (3.5-5.1); Protein, Total 7.3 g/dL (6.4-8.2); Thyroid Stimulating Hormone 0.127 uIU/mL (0.360-3.740); Troponin High Sensitivity 12.3 pg/mL (<58.9)
--- NOTE | 2022-02-09 14:38 | RAD REPORT ---
EXAM DESCRIPTION: RAD - Chest Single View - 02/09/2022 2:27 pm CLINICAL HISTORY: hypotension Chest pain. COMPARISON: Chest Pa And Lat (2 Views) dated 05/16/2019; CHEST SINGLE VIEW dated 10/09/2011 FINDINGS: Portable technique limits examination quality. The lungs are grossly clear. The heart is normal in size. No displaced fractures. IMPRESSION: No acute intrathoracic process suspected.
--- NOTE | 2022-02-09 15:17 | EDPHYS ---
Physician Documentation [facility] Name: Mora Mccann Age: 52 yrs Sex: Female : 1970 Arrival Date: 02/09/2022 Time: 13:12 Bed 23 Private MD: ED Physician Sandip Perez HPI: 02/09 15:18 This 52 yrs old Female presents to ER via Ambulatory with complaints of Low BP.rt 15:18 Onset: The symptoms/episode began/occurred 3 day(s) ago. Severity of symptoms: At their rt worst the symptoms were severe. Patient presents to the ED with about 3 days of significant diarrhea. Denies any abdominal pain. She states that she has been feeling dizzy, weak with blurred vision. Patient states that she checked her blood pressure at home and noted that it was low. Denies cough, chest pain, shortness of breath. Denies other acute complaints at this time. Symptoms are severe in severity, no other aggravating or alleviating factors.. 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 - Social history:: Smoking status: Patient denies any tobacco usage or history of. - Family history:: not pertinent. ROS: 15:18 Constitutional: Negative for fever, chills, and weight loss, Eyes: Negative for injury, rt pain, redness, and discharge, ENT: Negative for injury, pain, and discharge, Neck: Negative for injury, pain, and swelling, Cardiovascular: Negative for chest pain, palpitations, and edema, Respiratory: Negative for shortness of breath, cough, wheezing, and pleuritic chest pain, MS/Extremity: Negative for injury and deformity, Skin: Negative for injury, rash, and discoloration, Neuro: Negative for headache, weakness, numbness, tingling, and seizure, Psych: Negative for depression, anxiety, suicide ideation, homicidal ideation, and hallucinations. 15:18 ENT: 15:18 Abdomen/GI: Positive for diarrhea, Negative for abdominal pain, nausea and vomiting. Exam: 15:18 Constitutional: This is a well developed, well nourished patient who is awake, alert, rt and in no acute distress. Head/Face: Normocephalic, atraumatic. Eyes: Pupils equal round and reactive to light, extra-ocular motions intact. Lids and lashes normal. Conjunctiva and sclera are non-icteric and not injected. Cornea within normal limits. Periorbital areas with no swelling, redness, or edema. Neck: Trachea midline, no thyromegaly or masses palpated, and no cervical lymphadenopathy. Supple, full range of motion without nuchal rigidity, or vertebral point tenderness. No Meningismus. Chest/axilla: Normal chest wall appearance and motion. Nontender with no deformity. No lesions are appreciated. Cardiovascular: Regular rate and rhythm with a normal S1 and S2. No gallops, murmurs, or rubs. Normal PMI, no JVD. No pulse deficits. Respiratory: Lungs have equal breath sounds bilaterally, clear to auscultation and percussion. No rales, rhonchi or wheezes noted. No increased work of breathing, no retractions or nasal flaring. Abdomen/GI: Soft, non-tender, with normal bowel sounds. No distension or tympany. No guarding or rebound. No evidence of tenderness throughout. Skin: Warm, dry with normal turgor. Normal color with no rashes, no lesions, and no evidence of cellulitis. MS/ Extremity: Pulses equal, no cyanosis. Neurovascular intact. Full, normal range of motion. Neuro: Awake and alert, GCS 15, oriented to person, place, time, and situation. Cranial nerves II-XII grossly intact. Motor strength 5/5 in all extremities. Sensory grossly intact. Cerebellar exam normal. Normal gait. Psych: Awake, alert, with orientation to person, place and time. Behavior, mood, and affect are within normal limits. 15:18 ENT: Mucous membranes, no posterior pharyngeal erythema. 15:18 ECG was reviewed by the Attending Physician. Vital Signs: 13:21 BP 82 / 34; Pulse 88; Resp 16; Temp 96.3; Pulse Ox 99% ; Weight 99.79 kg; Height 5 ft. jh5 4 in. (162.56 cm); Pain 0/10; 14:00 BP 66 / 46; Pulse 77; Resp 17; Pulse Ox 99% ; tp1 14:30 BP 72 / 41; Pulse 75; Resp 16; Pulse Ox 98% on R/A; tp1 15:00 BP 83 / 56; Pulse 73; Resp 16; Pulse Ox 99% on R/A; tp1 16:00 BP 91 / 51; Pulse 76; Resp 20; Pulse Ox 98% ; tp1 17:18 BP 101 / 86; Pulse 78; Resp 20; Pulse Ox 99% on R/A; tp1 18:00 BP 93 / 36; Pulse 70; Resp 17; Pulse Ox 99% on R/A; tp1 18:40 BP 100 / 84; Pulse 76; Resp 17; Pulse Ox 100% on R/A; tp1 13:21 Body Mass Index 37.76 (99.79 kg, 162.56 cm) 5 MDM: 13:34 Patient medically screened. rt 15:18 Differential Diagnosis sepsis. Data reviewed: vital signs, nurses notes, EMS record, rt old medical records, lab test result(s), EKG, radiologic studies. ED course: She presents to the ED with hypotension. She is not febrile, does not have a white count. Do not suspect that she is septic. Patient was complaining of diarrhea, suspect the hypotension is due to intravascular volume depletion. She is found to have a acute kidney injury. Patient with symptomatic and vital sign improvement with aggressive IV hydration, patient will be admitted for further care. 02/09 13:34 Order name: CBC with Diff; Complete Time: 14:16 rt 02/09 13:34 Order name: CMP; Complete Time: 14:16 rt 02/09 13:34 Order name: Troponin High Sensitivity; Complete Time: 14:16 rt 02/09 13:34 Order name: Lactate w/ 2H reflex if indic.; Complete Time: 14:16 rt 02/09 13:34 Order name: BNP; Complete Time: 14:16 rt 02/09 13:34 Order name: Magnesium; Complete Time: 14:16 rt 02/09 13:34 Order name: UA MICROSCOPIC rt 02/09 13:34 Order name: TSH; Complete Time: 14:16 rt 02/09 15:17 Order name: COVID-19/FLU A+B; Complete Time: 20:11 rt 02/09 15:53 Order name: Creatine Phosphokinase; Complete Time: 20:11 EDMS 02/09 15:53 Order name: Magnesium; Complete Time: 20:11 EDMS 02/09 15:53 Order name: NT PRO-BNP; Complete Time: 20:11 EDMS 02/09 15:53 Order name: Phosphorus; Complete Time: 20:11 EDMS 02/09 15:53 Order name: Urinalysis EDMS 02/09 13:34 Order name: EKG; Complete Time: 13:35 rt 02/09 13:34 Order name: EKG - Nurse/Tech; Complete Time: 14:06 rt 02/09 13:34 Order name: Chest Single View XRAY; Complete Time: 14:56 rt 02/09 15:47 Order name: CONS Physician Consult EDMS 02/09 15:53 Order name: Renal EDMS 02/09 15:53 Order name: CBC with Automated Diff EDMS 02/09 15:54 Order name: CBC with Automated Diff EDMS 02/09 15:54 Order name: Comprehensive Metabolic Panel EDMS 02/09 15:54 Order name: Comprehensive Metabolic Panel EDMS 02/09 17:40 Order name: Basic Metabolic Panel; Complete Time: 20:11 EDMS EC:18 Rate is 81 beats/min. Rhythm is regular, Normal Sinus Rhythm with No ectopy. QRS [place] rt is Normal. ME interval is normal. QRS interval is normal. QT interval is normal. No Q waves. T waves are Normal. No ST changes noted. Interpreted by me. Administered Medications: 13:42 Drug: NS 0.9% 1000 ml Route: IV; Rate: 1 bolus; Site: right antecubital; 5 14:26 Follow up: Response: Blood pressure is unchanged; IV Status: Completed infusion; IV tp1 Intake: 1000ml 13:50 Drug: NS 0.9% 500 ml Route: IV; Rate: 125 calculated rate; Site: right antecubital; tp1 19:21 Follow up: IV Status: Completed infusion; IV Intake: 500ml tp1 14:26 Drug: NS 0.9% 1000 ml Route: IV; Rate: 1000 ml; Site: right antecubital; tp1 14:57 Follow up: Response: Blood pressure is elevated; IV Status: Completed infusion; IV tp1 Intake: 1000ml 14:58 Drug: NS 0.9% 500 ml Route: IV; Rate: bolus; Site: right antecubital; tp1 16:22 Follow up: IV Status: Completed infusion; IV Intake: 500ml tp1 Disposition Summary: 02/09/22 15:17 Hospitalization Ordered Hospitalization Status: Inpatient Admission rt Provider: Dimitri Pak rt Location: Telemetry/MedSur (Inpatient) rt Condition: Fair rt Problem: new rt Symptoms: have improved rt Bed/Room Type: Standard rt Room Assignment: 209(02/09/22 18:41) dw Diagnosis - Dehydration rt - Hypotension, unspecified rt - Acute kidney failure, unspecified rt - Diarrhea, unspecified rt Forms: - Medication Reconciliation Form rt - SBAR form rt Critical care time excluding procedures: 15:18 Critical care time: Bedside Care: 30 minutes, Consultation: 5 minutes. Total time: 35 rt minutes Signatures: Dispatcher [employer] Megan Lam RN RN dw Chandan Singh, MAKE UP GIRL-C MAKE UP GIRL-Cla1 Yee Morales RN RN jh5 Sadie Parra RN RN tp1 Sandip Perez MD MD rt Corrections: (The following items were deleted from the chart) 18:41 15:17 rt dw
--- NOTE | 2022-02-09 15:17 | ER ---
Nurse's Notes [facility] Name: Mora Mccann Age: 52 yrs Sex: Female : 1970 Arrival Date: 02/09/2022 Time: 13:12 Bed 23 Private MD: Diagnosis: Dehydration;Hypotension, unspecified;Acute kidney failure, unspecified;Diarrhea, unspecified Presentation: 02/09 13:24 Chief complaint: Patient states: since Wednesday I have been having pressure on my [facility] shoulders like someone is pushing me down, and headache, blurry vision and the low blood pressure on my machine at home (89/49, 90/54). Coronavirus screen: Vaccine status: Patient reports receiving the 2nd dose of the covid vaccine. Client denies travel out of the [place] in the last 14 days. Ebola Screen: Patient negative for fever greater than or equal to 101.5 degrees Fahrenheit, and additional compatible Ebola Virus Disease symptoms Patient denies exposure to infectious person. Patient denies travel to an Ebola-affected area in the 21 days before illness onset. Initial Sepsis Screen: Does the patient meet any 2 criteria? No. Patient's initial sepsis screen is negative. Does the patient have a suspected source of infection? No. Patient's initial sepsis screen is negative. Risk Assessment: Do you want to hurt yourself or someone else? Patient reports no desire to harm self or others. 13:24 Method Of Arrival: Ambulatory [facility] 13:24 Acuity: SAMMI 2 [facility] Triage Assessment: 13:21 General: Appears in no apparent distress. comfortable, obese, well groomed, well [facility] developed, well nourished, Behavior is calm, cooperative, appropriate for age. 13:26 Pain: Denies pain. 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 - Social history:: Smoking status: Patient denies any tobacco usage or history of. - Family history:: not pertinent. Screenin:07 Abuse screen: Denies threats or abuse. Denies injuries from another. Nutritional tp1 screening: No deficits noted. Tuberculosis screening: No symptoms or risk factors identified. Fall Risk No fall in past 12 months (0 pts). No secondary diagnosis (0 pts). IV access (20 points). Ambulatory Aid- None/Bed Rest/Nurse Assist (0 pts). Gait- Impaired (20 pts.). Mental Status- Oriented to own ability (0 pts). Total Horowitz Fall Scale indicates High Risk Score (45 or more points). Fall prevention measures have been instituted. Placed Close to Nursing Station 1:1 Attendant Assigned Frequent Obs/Assessments Occuring As available patient and family educated on Fall Prevention Program and Strategies. Assessment: 14:06 General: Appears in no apparent distress. comfortable, Behavior is calm, cooperative. tp1 Pain: Denies pain. Neuro: Level of Consciousness is awake, alert, obeys commands, Oriented to person, place, time, situation, Reports blurred vision dizziness, weakness. Cardiovascular: Patient's skin is warm and dry. Cardiovascular: Rhythm is sinus rhythm. Respiratory: Airway is patent Respiratory effort is even, unlabored. GI: No signs and/or symptoms were reported involving the gastrointestinal system. : No signs and/or symptoms were reported regarding the genitourinary system. EENT: No signs and/or symptoms were reported regarding the EENT system. Derm: Skin is pink, warm \T\ dry. Musculoskeletal: Circulation, motion, and sensation intact. 14:25 Reassessment: Received VO from DR. Preez to administer NS 1000mL bolus X1. tp1 14:56 Reassessment: received VO from Dr. Perez to administer NS 500mL bolus X1 and NS tp1 500 mL \T\ 125mL/hr. 15:00 Reassessment: Patient appears in no apparent distress at this time. No changes from tp1 previously documented assessment. Patient and/or family updated on plan of care and expected duration. Pain level reassessed. Patient is alert, oriented x 3, equal unlabored respirations, skin warm/dry/pink. Patient denies pain at this time. 16:00 Reassessment: Patient appears in no apparent distress at this time. No changes from tp1 previously documented assessment. Patient is alert, oriented x 3, equal unlabored respirations, skin warm/dry/pink. Patient denies pain at this time. 17:00 Reassessment: Patient appears in no apparent distress at this time. No changes from tp1 previously documented assessment. Patient is alert, oriented x 3, equal unlabored respirations, skin warm/dry/pink. son at bedside. 18:00 Reassessment: Patient appears in no apparent distress at this time. No changes from tp1 previously documented assessment. Patient is alert, oriented x 3, equal unlabored respirations, skin warm/dry/pink. resting in bed watching TV. 18:57 Reassessment: Patient appears in no apparent distress at this time. No changes from tp1 previously documented assessment. Patient is alert, oriented x 3, equal unlabored respirations, skin warm/dry/pink. Patient denies pain at this time. 19:34 Reassessment: report given to Evie Bucio. tp1 Vital Signs: 13:21 BP 82 / 34; Pulse 88; Resp 16; Temp 96.3; Pulse Ox 99% ; Weight 99.79 kg; Height 5 ft. [facility] 4 in. (162.56 cm); Pain 0/10; 14:00 BP 66 / 46; Pulse 77; Resp 17; Pulse Ox 99% ; tp1 14:30 BP 72 / 41; Pulse 75; Resp 16; Pulse Ox 98% on R/A; tp1 15:00 BP 83 / 56; Pulse 73; Resp 16; Pulse Ox 99% on R/A; tp1 16:00 BP 91 / 51; Pulse 76; Resp 20; Pulse Ox 98% ; tp1 17:18 BP 101 / 86; Pulse 78; Resp 20; Pulse Ox 99% on R/A; tp1 18:00 BP 93 / 36; Pulse 70; Resp 17; Pulse Ox 99% on R/A; tp1 18:40 BP 100 / 84; Pulse 76; Resp 17; Pulse Ox 100% on R/A; tp1 13:21 Body Mass Index 37.76 (99.79 kg, 162.56 cm) [facility] ED Course: 13:12 Patient arrived in ED. rg4 13:21 Arm band placed on right wrist. EKG completed in triage. Results shown to . [facility] 13:26 Triage completed. [facility] 13:29 Sandip Perez MD is Attending Physician. rt 13:35 Lisa Kirby, RN is Primary Nurse. iw 14:08 Patient has correct armband on for positive identification. Placed in gown. Bed in low tp1 position. Call light in reach. Client placed on continuous cardiac and pulse oximetry monitoring. NIBP monitoring applied. 14:08 Inserted saline lock: 20 gauge in right antecubital area, using aseptic technique. tp1 ,using aseptic technique. inserted by Yee Urena RN. 14:29 Chest Single View XRAY In Process Unspecified. EDMS 15:16 Dimitri Pak MD is Hospitalizing Provider. rt 16:22 COVID-19/FLU A+B Sent. tp1 18:57 No provider procedures requiring assistance completed. tp1 19:35 Patient admitted, IV remains in place. tp1 Administered Medications: 13:42 Drug: NS 0.9% 1000 ml Route: IV; Rate: 1 bolus; Site: right antecubital; jh5 14:26 Follow up: Response: Blood pressure is unchanged; IV Status: Completed infusion; IV tp1 Intake: 1000ml 13:50 Drug: NS 0.9% 500 ml Route: IV; Rate: 125 calculated rate; Site: right antecubital; tp1 19:21 Follow up: IV Status: Completed infusion; IV Intake: 500ml tp1 14:26 Drug: NS 0.9% 1000 ml Route: IV; Rate: 1000 ml; Site: right antecubital; tp1 14:57 Follow up: Response: Blood pressure is elevated; IV Status: Completed infusion; IV tp1 Intake: 1000ml 14:58 Drug: NS 0.9% 500 ml Route: IV; Rate: bolus; Site: right antecubital; tp1 16:22 Follow up: IV Status: Completed infusion; IV Intake: 500ml tp1 Medication: 14:09 VIS not applicable for this client. tp1 Intake: 14:26 IV: 1000ml; Total: 1000ml. tp1 14:57 IV: 1000ml; Total: 2000ml. tp1 16:22 IV: 500ml; Total: 2500ml. tp1 19:21 IV: 500ml; Total: 3000ml. tp1 Outcome: 15:17 Decision to Hospitalize by Provider. rt 19:58 Admitted to Med/surg accompanied by nurse, via wheelchair, room 209, with chart, Report tp1 called to evie BUCIO 19:58 Condition: good 19:58 Discharge instructions given to patient, Instructed on the need for admit, Demonstrated understanding of instructions. 19:59 Patient left the ED. tp1 Signatures: Dispatcher [employer] Lisa Dobbs, RN RN Sheila Esteban rg4 Yee Morales RN RN jh5 Sadie Parra RN RN tp1 Sandip Perez MD MD rt
[2022-02-09] MEDS ORDERED: ACETAMINOPHEN 325 MG TABLET PO PRN (15:47)
[2022-02-09] MEDS ORDERED: HYDROCODONE/APAP 5/325 MG TAB PO PRN (15:47)
[2022-02-09] MEDS ORDERED: ONDANSETRON 4 MG/2 ML VIAL IV PRN (15:48)
--- NOTE | 2022-02-09 15:55 | P.CNS ---
Date of Consult: 02/09/22 Reason for Consult: RACHELLE Requesting Physician: Dimitri Pak Chief Complaint: Hypotension and Malaise History of Present Illness: 3:24 Chief complaint: Patient states: since Wednesday I have been having pressure on my jh5 shoulders like someone is pushing me down, and headache, blurry vision and the low blood pressure on my machine at home (89/49, 90/54). Coronavirus screen: Vaccine status: Patient reports receiving the 2nd dose of the covid vaccine. Client denies travel out of the [place] in the last 14 days. Ebola Screen: Patient negative for fever greater than or equal to 101.5 degrees Fahrenheit, and additional compatible Ebola Virus Disease symptoms Patient denies exposure to infectious person. Patient denies travel to an Ebola-affected area in the 21 days before illness onset. Initial Sepsis Screen: Does the patient meet any 2 criteria? No. Patient's initial sepsis screen is negative. Does the patient have a suspected source of infection? No. Patient's initial sepsis screen is negative. Risk Assessment: Do you want to hurt yourself or someone else? Patient reports no desire to harm self or others. Patient is a 52-year-old female with a past medical history significant for DM 2 with neuropathy, hypertension, hypothyroidism, obesity who presents with complaint of diarrhea has been ongoing for the past 3 days. Patient reported that she has been having 15 episodes of diarrhea on a daily basis until this morning after she took Imodium. Patient reported associated signs and symptoms of poor appetite, lightheadedness, headache, blurry vision, generalized malaise and shoulder pressure. Patient denies any other signs or symptoms. Symptoms are aggravated or relieved by nothing. Patient decided to present to the hospital due to worsening symptoms Allergies Penicillins Allergy (Verified 08/08/11 22:01) Itching/Hives/Rash Home medications list reviewed: Yes Home Medications: Gabapentin [Neurontin] 600 mg PO TID 10/09/11 Levothyroxine [Synthroid Injection] 137 mcg PO DAILY 10/09/11 Canagliflozin [Invokana] 100 mg PO DAILY 05/16/19 Carvedilol [Coreg] 3.125 mg PO BID 05/16/19 Insulin Glargine,Hum.rec.anlog [Lantus Solostar] 5 unit SQ BEDTIME 05/16/19 Lisinopril [Zestril] 10 mg PO DAILY 05/16/19 Metformin HCl [Metformin ER Gastric] 1,000 mg PO BID 05/16/19 hydroCHLOROthiazide [Hydrochlorothiazide] 12.5 mg PO DAILY 05/16/19 Ciprofloxacin HCl [Cipro 500 MG Tablet] 500 mg PO BID #10 tab 05/17/19 Codeine/APAP [Tylenol W/Codeine #3 tab] 1 tab PO Q4HP PRN #30 tab 05/17/19 - Past Medical/Surgical History Diabetic: Yes -: DM II with Polyneuropathy -: Hypothyroidism -: HTN - Family History Father Medical History: Hypertension, Diabetes Mother Medical History: Hypertension, Diabetes - Social History Smoking Status: Never smoker Alcohol use: No CD- Drugs: No Caffeine use: Yes Review of Systems 10-point ROS is otherwise unremarkable General: Weakness, Malaise Gastrointestinal: Diarrhea Physical Examination General: Alert, Oriented x3, Cooperative HEENT: Atraumatic Neck: Supple Respiratory: Clear to auscultation bilaterally Cardiovascular: No edema, Regular rate/rhythm Gastrointestinal: Soft and benign, Non-distended Musculoskeletal: No clubbing, No contractures Integumentary: No rashes, No cyanosis Neurological: Normal speech Laboratory Data (last 24 hrs) 02/09/22 13:37: Sodium 130 L, Potassium 3.8, BUN 58 H, Creatinine 3.62 H, Glucose 152 H, Magnesium 1.9, Total Bilirubin 0.4, AST 14 L, ALT 20, Alkaline Phosphatase 80 02/09/22 13:37: WBC 7.00, Hgb 11.5 L, Hct 34.6 L, Plt Count 234 Imagings Data: EXAM DESCRIPTION: RAD - Chest Single View - 02/09/2022 2:27 pm CLINICAL HISTORY: hypotension Chest pain. COMPARISON: Chest Pa And Lat (2 Views) dated 05/16/2019; CHEST SINGLE VIEW dated 10/09/2011 FINDINGS: Portable technique limits examination quality. The lungs are grossly clear. The heart is normal in size. No displaced fractures. IMPRESSION: No acute intrathoracic process suspected. Conclusions/Impression: RACHELLE likely in the setting of hypovolemia -No NSAIDs -Agree with IVF -Hold HCTZ and Invokana Hyponatremia likely due to HCTZ -Hold HCTZ -Agree with NS IVF Mild AG Acidosis -Correct RACHELLE HTN complicated by hypotension -Hold Lisinopril and Carvedilol at this time -Agree with IVF resuscitation DM II with polyneuropathy -Continue Lantus -Recommend RISS -Continue Gabapentin -Hold Metformin Anemia in chronic illness Hx iron deficiency Hx B12 deficiency -Monitor H&H Hx Vitamin D3 Deficiency -Start Ergocalciferol qwk Thank you kindly for the consultation.
[2022-02-09] MEDS ORDERED: GLUCAGON 1 MG/VIAL IM PRN (16:13)
[2022-02-09] MEDS ORDERED: D50W 25 GM/50 ML SYRINGE IV PRN (16:13)
--- NOTE | 2022-02-09 16:25 | P.HP ---
Certification for Inpatient Patient admitted to: Inpatient With expected LOS: >2 Midnights Patient will require the following post-hospital care: None Practitioner: I am a practitioner with admitting privileges, knowledge of patient current condition, hospital course, and medical plan of care. Services: Services provided to patient in accordance with Admission requirements found in Title 42 Section 412.3 of the Code of Federal Regulations <GraceGuillermomarii Muñoz - Last Filed: 02/09/22 17:06> Patient History Date of Service: 02/09/22 Reason for admission: Hypotension and Diarrhea History of Present Illness: Patient is a 52-year-old female with a past medical history significant for DM 2 with neuropathy, hypertension, hypothyroidism, obesity who presents with complaint of diarrhea has been ongoing for the past 3 days. Patient reported that she has been having 15 episodes of diarrhea on a daily basis until this mor david after she took Imodium. Patient reported associated signs and symptoms of poor appetite, lightheadedness, headache, blurry vision, generalized malaise and shoulder pressure. Patient denies any other signs or symptoms. Symptoms are aggravated or relieved by nothing. Patient decided to present to the hospital due to worsening symptoms - Past Medical/Surgical History Diabetic: Yes -: DM II with Polyneuropathy -: Hypothyroidism -: HTN Past Surgical History: Reviewed- Non-Contributory - Family History Father -: Hypertension, Diabetes Mother -: Hypertension, Diabetes - Social History Smoking Status: Never smoker Alcohol use: No CD- Drugs: No Caffeine use: Yes Place of Residence: Home <Eze Edwards - Last Filed: 02/09/22 17:06> Date of Service: 02/09/22 <Dimitri Pak - Last Filed: 02/09/22 18:00> Allergies Penicillins Allergy (Verified 08/08/11 22:01) Itching/Hives/Rash Home Medications: Gabapentin [Neurontin] 600 mg PO TID 10/09/11 Levothyroxine [Synthroid Injection] 137 mcg PO DAILY 10/09/11 Canagliflozin [Invokana] 100 mg PO DAILY 05/16/19 Carvedilol [Coreg] 3.125 mg PO BID 05/16/19 Insulin Glargine,Hum.rec.anlog [Lantus Solostar] 5 unit SQ BEDTIME 05/16/19 Lisinopril [Zestril] 10 mg PO DAILY 05/16/19 Metformin HCl [Metformin ER Gastric] 1,000 mg PO BID 05/16/19 hydroCHLOROthiazide [Hydrochlorothiazide] 12.5 mg PO DAILY 05/16/19 Ciprofloxacin HCl [Cipro 500 MG Tablet] 500 mg PO BID #10 tab 05/17/19 Codeine/APAP [Tylenol W/Codeine #3 tab] 1 tab PO Q4HP PRN #30 tab 05/17/19 Review of Systems General: Malaise, Other (Poor Appetite, ) Eyes: Other (Blurry vision ) ENT: Unremarkable Respiratory: Unremarkable Cardiovascular: Light Headedness Gastrointestinal: Nausea, Diarrhea Musculoskeletal: Other (Shoulder pressure.) Integumentary: Unremarkable Neurological: Other (Lightheadedness, headache.) Lymphatics: Unremarkable <Eze Edwards - Last Filed: 02/09/22 17:06> Physical Examination - Physical Exam General: Alert, In no apparent distress, Oriented x3, Cooperative HEENT: Atraumatic, PERRLA, EOMI Neck: Supple, 2+ carotid pulse no bruit, No LAD, Without JVD or thyroid abnormality Respiratory: Clear to auscultation bilaterally, Normal air movement Cardiovascular: No edema, Regular rate/rhythm, Normal S1 S2 Capillary refill: <2 Seconds Gastrointestinal: Normal bowel sounds, No tenderness Musculoskeletal: No clubbing, No swelling, No tenderness Integumentary: No rashes, No breakdown, No significant lesion, No tenderness/swelling Neurological: Normal gait, Normal speech, Normal strength at 5/5 x4 extr, Normal tone, Normal affect Lymphatics: No axilla or inguinal lymphadenopathy - Studies Laboratory Data (last 24 hrs) 02/09/22 13:37: Sodium 130 L, Potassium 3.8, BUN 58 H, Creatinine 3.62 H, Glucose 152 H, Magnesium 1.9, Total Bilirubin 0.4, AST 14 L, ALT 20, Alkaline Phosphatase 80 02/09/22 13:37: WBC 7.00, Hgb 11.5 L, Hct 34.6 L, Plt Count 234 <Eze Edwards - Last Filed: 02/09/22 17:06> - Studies Laboratory Data (last 24 hrs) 02/09/22 13:37: Sodium 130 L, Potassium 3.8, BUN 58 H, Creatinine 3.62 H, Glucose 152 H, Magnesium 1.9, Total Bilirubin 0.4, AST 14 L, ALT 20, Alkaline Phosphatase 80 02/09/22 13:37: WBC 7.00, Hgb 11.5 L, Hct 34.6 L, Plt Count 234 <Dimitri Pak - Last Filed: 02/09/22 18:00> Assessment and Plan - Plan --Acute kidney injury. Likely prerenal secondary to dehydration. Patient has been having diarrhea at least 15 daily episodes in the last 3 days. Patient given IV bolus hydration in the ER. Nephrology consulted. We will avoid NSAIDs and nephrotoxins. Continue IV hydration. Further management per salon sales consultant. --Hypotension. Likely secondary to dehydration. Will hold off on BP meds. Continue IV hydration. Will continue to monitor BP levels. --DM 2 with Neuropathy. BS monitoring with S\S insulin. Continue gabapentin for her neuropathy --Obesity. Likely secondary to excess calories intake. Patient counselled on weight reduction, diet and exercise therapy. --Diarrhea. Stool Studies pending to r\o any infectious process. Continue IV hydration. --Anemia of chronic disease. H&H stable. We will continue to monitor hemoglobin and transfuse if less than 7.0. -Hypothyroidism. Continue Synthroid. --Headache. Tylenol as needed. --DVT prophylaxis with heparin subQ. - Discharge Plan: Home Plan to discharge in: Greater than 2 days - Advance Directives Does patient have a Living Will: No Does patient have a Durable POA for Healthcare: No - Code Status/Comfort Care Code Status Assessed: Yes Physician Review: Patient Assessed, Agree with Above Assessment and Plan Critical Care: No <Eze Edwards - Last Filed: 02/09/22 17:06> Physician Review: Patient Assessed, Agree with Above Assessment and Plan <Dimitri Pak - Last Filed: 02/09/22 18:00>
[2022-02-09 16:29] LABS: SARS-COV-2 RT PCR NEGATIVE (NEGATIVE)
[2022-02-09] MEDS: INSULIN -REGULAR HUMAN 50 UNIT/0.5 ML ML SQ SCH ×2 (16:30→21:00)
[2022-02-09 17:06] LABS: Magnesium 1.8 mg/dL (1.8-2.4); Phosphorus 6.3 mg/dL (2.5-4.9)
[2022-02-09 17:39] LABS: Potassium 3.8 mmol/L (3.5-5.1)
[2022-02-09] MEDS ORDERED: NA CHLORIDE 0.9% 500 ML IV ONE ×2 (20:10→21:02)
[2022-02-09] MEDS ORDERED: NA CHLORIDE 0.9% 500 ML ONE (20:20)
[2022-02-09] MEDS: NA CHLORIDE 0.9% 1,000 ML IV SCH (20:27)
[2022-02-09 20:54] VITALS: BMI 38.0
[2022-02-09] MEDS ORDERED: HOME MED 1 EA UNK (Gabapentin [Neurontin] 600 MG Tablet) PO SCH (21:00)
[2022-02-09] MEDS: INSULIN GLARGINE 100 UNIT/ML SQ SCH (21:00)
[2022-02-09] MEDS ORDERED: HOME MED 1 EA UNK (Insulin Glargine,Hum.Rec.Anlog [Lantus Solostar] 100 UNIT/ML Insuln.Pen SQ SCH (21:00)
[2022-02-09] MEDS: HEPARIN 5000 UNIT/ML 1 ML VIAL SQ SCH (22:47)
[2022-02-09] MEDS: GABAPENTIN 300 MG CAP PO SCH (22:47)
[2022-02-10 01:26] LABS: Specific Gravity 1.007 (1.005-1.030); Urine Bacteria <20 /HPF (<20); Urine Bilirubin NEGATIVE (Negative); Urine Blood Negative (Negative); Urine Clarity Clear (Clear); Urine Color Colorless (Yellow); Urine Glucose 3+ (Negative); Urine Mucus Slight /HPF (None Seen); Urine Protein NEGATIVE (Negative); Urine RBC <5 /HPF (None Seen); Urine Urobilinogen Normal (Normal)
[2022-02-10 01:33] LABS: UR PROTEIN 9.9 mg/dL (<11.9); Urine Protein/Creatinine Ratio 0.19 ratio (<0.15)
[2022-02-10] MEDS: NA CHLORIDE 0.9% 1,000 ML IV SCH ×3 (03:00→23:00)
[2022-02-10 06:26] LABS: Absolute Lymphocytes (CBC) 1.8 K/uL (0.7-4.9); Hematocrit 29.4 % (36.0-45.0); Lymphocytes % 33.9 % (15.3-44.8); MCV 88.5 fL (80-100); MPV 8.5 fL (7.6-11.3); RBC Red Blood Cell Count 3.31 M/uL (3.86-4.86)
[2022-02-10] MEDS ORDERED: LEVOTHYROXINE SOD 0.112 MG TAB PO SCH (07:30)
[2022-02-10] MEDS ORDERED: LEVOTHYROXINE SOD 0.025 MG TAB PO SCH (07:30)
[2022-02-10] MEDS: INSULIN -REGULAR HUMAN 50 UNIT/0.5 ML ML SQ SCH ×4 (07:30→21:00)
[2022-02-10] MEDS ORDERED: INFLUENZA VACCINE (for 6+ mo) 0.5 ML DOSE IMVAC ONE (08:00)
[2022-02-10 08:12] LABS: Albumin 2.6 g/dL (3.4-5.0); Bilirubin Total 0.3 mg/dL (0.2-1.0); Potassium 4.2 mmol/L (3.5-5.1); Protein, Total 5.7 g/dL (6.4-8.2); Uric Acid 7.5 mg/dL (2.6-6.0)
[2022-02-10] MEDS ORDERED: LEVOTHYROXINE 200 MCG PO SCH (09:00)
[2022-02-10] MEDS: GABAPENTIN 300 MG CAP PO SCH ×3 (09:01→22:13)
[2022-02-10] MEDS: HEPARIN 5000 UNIT/ML 1 ML VIAL SQ SCH ×2 (09:01→22:13)
--- NOTE | 2022-02-10 13:50 | EKG ---
Test Date: 2022-02-09 Test Time: 13:50:56 Hand Patcher: MEASUREMENT RESULTS: Intervals: Rate: 81 CA: 178 QRSD: 94 QT: 406 QTc: 471 Harper: P: 36 CA: 178 QRS: -12 T: 8 INTERPRETIVE STATEMENTS: Normal sinus rhythm Possible Anterior infarct, age undetermined Abnormal ECG Compared to ECG 05/16/2019 11:43:02 Myocardial infarct finding now present Left ventricular hypertrophy no longer present Electronically Signed On 02-10-22 13:47:40 [employer] by Jose Morris
--- NOTE | 2022-02-10 14:25 | P.PN ---
Subjective Date of Service: 02/10/22 Chief Complaint: Hypotension and Malaise Overnight, she has been persistently hypotensive; however, she has not displayed any symptoms of hypotension. For instance, her mentation has remained intact and she has not demonstrated tachycardia. Stool studies have been sent and are pending. Lab studies are consistent with iatrogenic hyperthyroidism, which I suspect are contributing to her diarrhea. Review of Systems 10-point ROS is otherwise unremarkable Gastrointestinal: Diarrhea Physical Examination - Vital Signs Temperature: 97.5 F Blood Pressure: 103/50 Pulse: 77 Respirations: 18 Pulse Ox (%): 97 - Physical Exam General: Alert, In no apparent distress, Oriented x3 HEENT: Atraumatic, PERRLA, Mucous membr. moist/pink, EOMI, Sclerae nonicteric Neck: Supple Respiratory: Clear to auscultation bilaterally, Normal air movement Cardiovascular: No edema, Regular rate/rhythm, Normal S1 S2, No gallops, No rubs, No murmurs Gastrointestinal: Soft and benign, Non-distended, No tenderness, No rebound, No guarding, Hyperactive Musculoskeletal: No clubbing Integumentary: No rashes Neurological: Normal speech, Cranial nerves 3-12 intact, Normal affect Assessment And Plan - Plan # Hypovolemic Shock and KDIGO Stage III Acute Kidney Injury secondary to Profound Dehydration from Diarrhea - Consulted Nephrology and spoke with Dr. Anderson - recommendations appreciated - Creatinine = 3.62 -> 2.66 -> 1.38 - Urinalysis = 3+ glucosuria - S/P multiple boluses of IV fluids - Continue with IV Lactated Ringers' 125 mL/hr - Monitor creatinine and urine output - If worsening, obtain renal ultrasound - Renally dose medications - Infectious stool studies pending - Ordered CT abdomen/pelvis to evaluate for enteritis # Hypothyroidism, now with Iatrogenic Hyperthyroidism - TSH 0.127, Free T4 1.52 - Possibly contributing to diarrhea - Reduced levothyroxine from 137 mcg to 100 mcg # Type II Diabetes Mellitus complicated by Diabetic Neuropathy - Continue correction scale insulin + gabapentin # Obesity - BMI 38.0 kg/m2 - Lifestyle modifications - Follow-up with PCP Dimitri Pak M.D.
--- NOTE | 2022-02-10 17:26 | RAD REPORT ---
EXAM DESCRIPTION: CTAbdomen Pelvis Wo Contrast - 02/10/2022 5:06 pm CLINICAL HISTORY: diarrhea - colitis? COMPARISON: No comparisons TECHNIQUE: CT of the abdomen and pelvis was performed. All CT scans are performed using dose optimization technique as appropriate and may include automated exposure control or mA/KV adjustment according to patient size. FINDINGS: Lower chest: No acute abnormality. Liver: No acute abnormality or suspicious lesions. Biliary: No biliary ductal dilatation. Stomach: No significant focal abnormality. Duodenum: No significant focal abnormality. Pancreas: No significant abnormality. Spleen: No significant abnormality. Adrenal: No suspicious lesions. Kidney/ureter: No hydronephrosis. No renal calculi. Left renal sinus cysts. Retroperitoneum: No retroperitoneal adenopathy. Vascular: No aneurysm. Bowel: Multiple air-fluid levels in the colon.. No bowel obstruction. Normal appendix. Peritoneum: No ascites or free air. Bladder: Grossly unremarkable. Reproductive: No adnexal masses. Bones: No acute fracture. Disc height loss at L4-5 and L5-S1. Other: n/a IMPRESSION: No acute intra-abdominal or pelvic finding. Scattered air-fluid levels in the colon may represent diarrheal disease. No bowel obstruction. No appendicitis.
--- NOTE | 2022-02-10 19:34 | P.PN ---
Date of Service: 02/10/22 Vital Signs Temp Pulse Resp BP Pulse Ox 98.1 F 81 18 105/52 L 96 02/10/22 16:00 02/10/22 16:00 02/10/22 16:00 02/10/22 16:00 02/10/22 16:00 Medications Acetaminophen (Acetaminophen 325 Mg Tablet) 650 mg PO Q6H PRN PRN Reason: TEMP > 100.4' F Hydrocodone Bitart/Acetaminophen (Hydrocodone/Apap 5/325 Mg Tab) 1 tab PO Q6H PRN PRN Reason: Pain scale 5-7 (Moderate) Cyanocobalamin (Cyanocobalamin 1000mcg/Ml Inj) 1,000 mcg SQ DAILY [facility] Stop: 02/19/22 09:01 Dextrose (D50w 25 Gm/50 Ml Syringe) 12.5 gm IV PRN PRN; Protocol PRN Reason: HYPOGLYCEMIA Ergocalciferol (Drisdol (Vitamin D=Ergocalciferol) 06079 Unit Cap) 50,000 unit PO Q7D@0900 [facility] Gabapentin (Gabapentin 300 Mg Cap) 600 mg PO TID [facility] Last Admin: 02/10/22 13:35 Dose: 600 mg Glucagon (Glucagon 1 Mg/Vial) 1 mg IM 1X PRN PRN Reason: HYPOGLYCEMIA Heparin Sodium (Porcine) (Heparin 5000 Unit/Ml 1 Ml Vial) 5,000 unit SQ Q12HR N[facility] Last Admin: 02/10/22 09:01 Dose: 5,000 unit Sodium Chloride (Ns 1000 Ml Ivbag) 1,000 mls @ 100 mls/hr IV .Q10H [facility] Last Admin: 02/10/22 13:35 Dose: 1,000 mls Insulin Glargine (Insulin Glargine 100 Unit/Ml) 5 unit SQ BEDTIME [facility] Last Admin: 02/09/22 21:00 Dose: Not Given Insulin Human Regular (Insulin -Regular Human 50 Unit/0.5 Ml Ml) 0 unit SQ ACHS [facility]; Protocol Last Admin: 02/10/22 15:39 Dose: Not Given Levothyroxine Sodium (Levothyroxine Sod 0.1 Mg Tab) 0.1 mg PO DAILYAC [facility] Multivitamins/Iron (Fe Sulf/Fa/Vit B Comp & C Tab) 1 tab PO DAILY WITH BREAKFAST [facility] Ondansetron HCl (Ondansetron 4 Mg/2 Ml Vial) 4 mg IV Q6HP PRN PRN Reason: NAUSEA / VOMITING Sodium Chloride (Flush Normal Saline 10 Ml) 10 ml IV BID [facility] Last Admin: 02/10/22 09:00 Dose: Not Given Assessment/ Plan: Nephrology No dyspnea No chest pain Feeling better No acute events overnight Vitals, medications, blood work and imaging reviewed in the chart. General: Alert, Oriented x3, Cooperative HEENT: Atraumatic Neck: Supple Respiratory: Clear to auscultation bilaterally Cardiovascular: No edema, Regular rate/rhythm Gastrointestinal: Soft and benign, Non-distended Musculoskeletal: No clubbing, No contractures Integumentary: No rashes, No cyanosis Neurological: Normal speech Laboratory Data (last 24 hrs) 02/09/22 13:37: Sodium 130 L, Potassium 3.8, BUN 58 H, Creatinine 3.62 H, Glucose 152 H, Magnesium 1.9, Total Bilirubin 0.4, AST 14 L, ALT 20, Alkaline Phosphatase 80 02/09/22 13:37: WBC 7.00, Hgb 11.5 L, Hct 34.6 L, Plt Count 234 Imagings Data: EXAM DESCRIPTION: RAD - Chest Single View - 02/09/2022 2:27 pm CLINICAL HISTORY: hypotension Chest pain. COMPARISON: Chest Pa And Lat (2 Views) dated 05/16/2019; CHEST SINGLE VIEW dated 10/09/2011 FINDINGS: Portable technique limits examination quality. The lungs are grossly clear. The heart is normal in size. No displaced fractures. IMPRESSION: No acute intrathoracic process suspected. Conclusions/Impression: RACHELLE likely in the setting of hypovolemia Proteinuria -No NSAIDs -Agree with IVF -Hold HCTZ and Invokana Hyponatremia likely due to HCTZ -Hold HCTZ -Agree with NS IVF Mild AG Acidosis, resolved HTN complicated by hypotension -Hold Lisinopril and Carvedilol at this time -Agree with IVF resuscitation -Check cortisol level DM II with polyneuropathy -Continue Lantus -Recommend RISS -Continue Gabapentin -Hold Metformin Hypoalbuminemia Anemia in chronic illness Iron deficiency 18% B12 deficiency -Monitor H&H -Start daily oral iron -Start B12 injections daily Hx Vitamin D3 Deficiency -Continue Ergocalciferol qwk Case reviewed with Dr. Pak
[2022-02-10] MEDS: CYANOCOBALAMIN 1000MCG/ML INJ SQ SCH (20:00)
[2022-02-10] MEDS: INSULIN GLARGINE 100 UNIT/ML SQ SCH (22:14)
[2022-02-11] MEDS: NA CHLORIDE 0.9% 1,000 ML IV SCH ×3 (02:15→09:00)
[2022-02-11 05:31] LABS: Absolute Lymphocytes (CBC) 1.6 K/uL (0.7-4.9); Lymphocytes % 40.2 % (15.3-44.8); MCV 88.3 fL (80-100); MPV 8.1 fL (7.6-11.3); RBC Red Blood Cell Count 3.28 M/uL (3.86-4.86)
[2022-02-11 06:01] LABS: Magnesium 1.8 mg/dL (1.8-2.4); Potassium 3.9 mmol/L (3.5-5.1); Uric Acid 5.4 mg/dL (2.6-6.0)
[2022-02-11] MEDS ORDERED: LEVOTHYROXINE SOD 0.1 MG TAB PO SCH (06:30)
[2022-02-11 07:14] VITALS: O2SAT 98
[2022-02-11] MEDS: INSULIN -REGULAR HUMAN 50 UNIT/0.5 ML ML SQ SCH ×2 (07:30→11:30)
[2022-02-11] MEDS ORDERED: FE SULF/FA/VIT B COMP & C TAB PO SCH (08:00)
[2022-02-11] MEDS ORDERED: MAGNESIUM SULFATE 1 gm IVPB 1 GM/100 ML BAG IV ONE (08:00)
[2022-02-11] MEDS: GABAPENTIN 300 MG CAP PO SCH (08:40)
[2022-02-11] MEDS: HEPARIN 5000 UNIT/ML 1 ML VIAL SQ SCH (08:41)
[2022-02-11] MEDS: CYANOCOBALAMIN 1000MCG/ML INJ SQ SCH (08:45)
[2022-02-11] MEDS ORDERED: DRISDOL (VITAMIN D=ERGOCALCIFEROL) 50000 UNIT CAP PO SCH (09:00)
[2022-02-11] MEDS ORDERED: POTASSIUM CL SA 10 MEQ TAB PO ONE (09:00)
--- NOTE | 2022-02-11 10:53 | P.PN ---
Nephrology note (S) Pt reports feeling better, denies abd pain, diarrhea, dizziness or lightheadedness while out of bed. Tolerating PO inake without issues Vitals, medications, blood work and imaging reviewed in the chart. General: Alert, Oriented x3, Cooperative HEENT: Atraumatic, scler anicteric Neck: Supple Respiratory: Clear to auscultation bilaterally Cardiovascular: No edema, Regular rate/rhythm Gastrointestinal: Soft and benign, Non-distended Musculoskeletal: No clubbing, No contractures Integumentary: No rashes, No cyanosis Neurological: Non focal Conclusions/Impression: Stage II RACHELLE 2nd to functional injury induced by pre-renal state, volume depletion, hypotension, concurrent use of ACEi/diuretics/SGLT2i Cr level has normalized off offending agents and post vol repletion and with improvement in BP. D/c IVF Hypotension 2nd to vol depletion, meds Hold SHELBY, diuretics and SGLT2i agent on discharge BP improved to systolic > 100. Cortisol level random was > 3. DM II with unspecified complications -Maintain off Farxiga in light of above episode, pt did not have proteinuria and Cr level improved sig post hydration so there is not a strong indication for its use from a diabetic CKD prevention standpoint Discharge at the discretion of the primary team. Will have pt f/u at least once in clinic to review the above. Wallace Lopez MD, HARD[facility]
[2022-02-11 12:16] VITALS: TEMP 97.6
[2022-02-11 13:29] VITALS: BP 127/69
--- NOTE | 2022-02-11 13:44 | P.DS ---
Admission Date: 02/09/22 Discharge Date: 02/11/22 Disposition: ROUTINE DISCHARGE Discharge Condition: GOOD Reason for Admission: Hypotension and Malaise Consultations: 1. Nephrology Hospital Course: DIAGNOSES: # Hypovolemic Shock and KDIGO Stage III Acute Kidney Injury secondary to Profound Dehydration from Diarrhea # Hypothyroidism, now with Iatrogenic Hyperthyroidism # Type II Diabetes Mellitus complicated by Diabetic Neuropathy # Hypertension # Obesity - BMI 38.0 kg/m2 HOSPITAL COURSE: Ms. Mora Mccann is a pleasant 52 year old female with a past medical history significant for type 2 diabetes mellitus complicated by diabetic neuropathy, hypertension, and hypothyroidism who was admitted to the [facility] on 02/09/2022 for severe diarrhea. She was admitted to the Medicine service. Upon further evaluation, she was found to have hypovolemic shock and KDIGO stage III acute kidney injury secondary to severe dehydration from diarrhea. Nephrology was consulted and she was evaluated by Dr. Anderson. She was treated with IV fluids and demonstrated significant improvement in her diarrhea and normalization of her creatinine levels. During her evaluation, she was also noted to have hyperthyroidism likely secondary to oversupplementation. Over her hospitalization, her diarrhea completely resolves and she had become asymptomatic. She stated that she would like to be discharged, and this is reasonable given the resolution of her symptoms and her ability to maintain adequate blood pressure. I have advised that she hold her blood pressure medications and lower her levothyroxine dose. An attempt was made to test her stool for Clostridioides Difficile; however, per microbiology staff, she did not meet criteria for testing. On 02/11/2022, she was seen on morning rounds and deemed medically stable for discharge. She was discharged with instructions to schedule follow-up appointments with her PCP (NOHELIA Collazo) and with Nephrology (Dr. Anderson). She was provided a prescription for levothyroxine. She was given the opportunity to ask questions and reported no further questions. Furthermore, all questions were answered to the best of my ability. A copy of this discharge summary will be sent to the above providers to facilitate continuity of care. Today, I personally spent 25 minutes on her case, of which greater than 50% of the time was spent in patient education, counseling, and coordination of care as described above. - Physical Exam General: Alert, In no apparent distress, Oriented x3 HEENT: Atraumatic, PERRLA, Mucous membr. moist/pink, EOMI, Sclerae nonicteric Neck: Supple Respiratory: Clear to auscultation bilaterally, Normal air movement Cardiovascular: No edema, Regular rate/rhythm, Normal S1 S2, No gallops, No rubs, No murmurs Gastrointestinal: Normoactive, Soft and benign, Non-distended, No tenderness, No rebound, No guarding Musculoskeletal: No clubbing Integumentary: No rashes Neurological: Normal speech, Cranial nerves 3-12 intact, Normal affect Vital Signs/Physical Exam: Temp Pulse Resp BP Pulse Ox 97.6 F 74 18 127/69 98 02/11/22 12:00 02/11/22 13:28 02/11/22 12:00 02/11/22 13:28 02/11/22 12:00 Laboratory Data at Discharge: WBC 3.90 K/uL (4.3-10.9) L 02/11/22 05:15 Hgb 9.7 g/dL (12.0-15.0) L 02/11/22 05:15 Hct 29.0 % (36.0-45.0) L 02/11/22 05:15 Plt Count 176 K/uL (152-406) 02/11/22 05:15 Sodium 141 mmol/L (136-145) 02/11/22 05:15 Potassium 3.9 mmol/L (3.5-5.1) 02/11/22 05:15 BUN 13 mg/dL (7-18) 02/11/22 05:15 Creatinine 0.70 mg/dL (0.55-1.3) 02/11/22 05:15 Glucose 114 mg/dL (74-106) H 02/11/22 05:15 Uric Acid 5.4 mg/dL (2.6-6.0) 02/11/22 05:15 Phosphorus 2.5 mg/dL (2.5-4.9) 02/11/22 05:15 Magnesium 1.8 mg/dL (1.8-2.4) 02/11/22 05:15 Total Bilirubin 0.3 mg/dL (0.2-1.0) 02/10/22 05:54 AST 11 U/L (15-37) L 02/10/22 05:54 ALT 16 U/L (12-78) 02/10/22 05:54 Alkaline Phosphatase 63 U/L (45-117) D 02/10/22 05:54 Home Medications: Gabapentin [Neurontin] 600 mg PO TID 10/09/11 Metformin HCl [Metformin ER Gastric] 1,000 mg PO BID 05/16/19 Amitriptyline [Elavil*] 25 mg PO BEDTIME 02/09/22 Atorvastatin Calcium 1 tab PO DAILY 02/09/22 Insulin Aspart [Novolog Flexpen] 15 unit SQ SEECOM 02/09/22 Insulin Degludec [Tresiba] 70 unit SQ BID 02/09/22 Pioglitazone [Actos*] 15 mg PO DAILY 02/09/22 Semaglutide [Ozempic] 1 mg SQ SEECOM 02/09/22 Levothyroxine [Synthroid*] 0.1 mg PO DAILYAC #30 tab 02/11/22 New Medications: Levothyroxine [Synthroid*] 0.1 mg PO DAILYAC #30 tab Physician Discharge Instructions: 1. Please call and schedule a follow-up appointment with your PCP (NOHELIA Collazo) in 3-5 days - Please have your thyroid blood work rechecked at this appointment 2. Please call and schedule a follow-up appointment with Nephrology (Dr. Anderson) in 5-7 days - Please monitor your blood pressure at home. Please hold the following medications until you see your PCP: - Carvedilol, Farxiga, Lisinopril, Spironolactone-Hydrochlorothiazide Diet: Regular Activity: Ad navdeep Followup: Lukasz Anderson DO [ACTIVE - CAN ADMIT] - Sanjay Collazo NP [Primary Care Provider] - Time spent managing pt's care (in minutes): 25
[2022-02-16] MEDS ORDERED: DRISDOL (VITAMIN D=ERGOCALCIFEROL) 50000 UNIT CAP PO SCH (09:00)
== END 2022-02-11 14:17 | disposition home or self-care (01) | DRG 682 ==
LOC: ER 13:08 → ERHOLD 15:43 → 2ND 19:25
PROVIDERS: ADMIT Internal Medicine; ATTEND Internal Medicine
DX: N17.9 Acute kidney failure, unspecified (principal); R57.1 Hypovolemic shock; E87.1 Hypo-osmolality and hyponatremia; E87.20 Acidosis, unspecified; I10 Essential (primary) hypertension; E03.9 Hypothyroidism, unspecified; I95.9 Hypotension, unspecified; E11.42 Type 2 diabetes mellitus with diabetic polyneuropathy; D63.8 Anemia in other chronic diseases classified elsewhere; E05.90 Thyrotoxicosis, unspecified without thyrotoxic crisis or storm; E88.09 Other disorders of plasma-protein metabolism, not elsewhere classified; E61.1 Iron deficiency; E53.8 Deficiency of other specified B group vitamins; E66.09 Other obesity due to excess calories; R51.9 Headache, unspecified; Z88.0 Allergy status to penicillin; Z79.4 Long term (current) use of insulin; Z79.84 Long term (current) use of oral hypoglycemic drugs; Z68.38 Body mass index [BMI] 38.0-38.9, adult; Z79.899 Other long term (current) drug therapy; Z79.890 Hormone replacement therapy; Z20.822 Contact with and (suspected) exposure to COVID-19
CPT/HCPCS: 0240U; 36415; 71045; 74176; 80048; 80053; 81001; 82024; 82533; 82550; 82570; 82607; 82947; 83036; 83540; 83605; 83735; 83880; 84100; 84156; 84439; 84443; 84466; 84484; 84550; 85025; 87045; 87046; 87177; 87209; 87324; 89055; 93005; 96360; 96361; 99285; J1644; J3420; J3475; J7030; J7040

== ENCOUNTER 2022-03-17 19:22 | Emergency (ER) | payer MEDICARE ==
--- OUTSIDE RECORDS SUMMARY | 2022-03-17 19:26 | XMS REPORT | Continuity of Care Document ---
:1970 Author Organization [facility] t Address [address] [place] [address] Care Team Providers Name Role Phone Mildred Collazo Attending Clinician Unavailable Carmen Bautista Attending Clinician Radha Attending Clinician Unavailable ALEXANDER Attending Clinician Unavailable Radha Admitting Clinician Unavailable ALEXANDER Admitting Clinician Unavailable Payers Payer Name Policy Type Policy Number Effective Date Expiration Date clifton [facility] [employer] [id number] 2021 (MEDICARE 00:00:00 REPLACEMENT HMO) Problems Condition Condition Condition Status Onset Resolution Last Treating Co mments Source Name Details Category Date Date Treatment Clinician Date [id number] Primary Problem Comm on osteoarthr Spirit itis of - [facility]I left knee [facility] [id number] Type 2 Problem Common diabetes Spirit mellitus - [facility] with [facility] [id number] Type 2 Problem Commo n 9102 diabetes Spirit mellitus - CHI with other [facility] kidney Medical complicati Center on [id number] Other Problem Common chronic Spirit pain - CHI [facility] [id number] Hypothyroi Problem Com mon dism, Spirit unspecifie - [facility] d type [facility] [id number] Lumbago Problem Comm on with Spirit sciatica, - CHI right side [facility] [id number] oysterman Problem Com mon (current) Spirit use of - [facility] insulin [facility] [id number] Mixed Problem Common hyperlipid Spirit emia - CHI [facility] [id number] Lumbago Problem Commo n with Spirit sciatica, - CHI left side [facility] [id number] Essential Problem Comm on (primary) Spirit hypertensi - [facility] on [facility] [id number] Glaucoma Problem Commo n of both Spirit eyes, - CHI unspecifie [facility] Allergies, Adverse Reactions, Alerts Allergy Allergy Status Severity Reaction(s) Onset Inactive Treating Comm ents Source Name Type Date Date Clinician penicill penicill Active Unknown Commo n in V in V [facility] Social History Social Habit Start Date Stop Date Quantity Comments Source History of Tobacco Use Co mmon [facility] Sex Assigned At Com mon [facility] Smoking Status Start Date Stop Date Source Never Smoker Common [facility] Medications Ordered Filled Start Stop Current Ordering Indication Dosage Frequency Signature Comments Components Source Medication Medication Date Date Medication? Clinician (SIG) Name Name Nuris Tangtadevin 2021-03 No 1{table QD Atorvastat n Calcium [...] MG 40 MG 00:00: 40 MG 00 Naropin Naropin 2021-0 No 5mg Common (Ropivacain (Ropivacain 9-08 S pirit e HCl) e HCl) 00:00: - CHI 00 [facility] Abisaialog Kenalog 2021-0 No 40mg Common (Triamcinol (Triamcinol 9-08 S pirit one) one) 00:00: - CHI 00 [facility] Naropin Naropin 2021-0 No 5mg Common (Ropivacain (Ropivacain 9-08 S pirit e HCl) e HCl) 00:00: - CHI 00 [facility] Kosta Kenalog 2021-0 No 40mg Common (Triamcinol (Triamcinol 9-08 S pirit one) one) 00:00: - CHI 00 [facility] Naropin Naropin 2021-0 No 5mg Common (Ropivacain (Ropivacain 9-08 S pirit e HCl) e HCl) 00:00: - CHI 00 [facility] Kosta Kenalog 2021-0 No 40mg Common (Triamcinol (Triamcinol 9-08 S pirit one) one) 00:00: - CHI 00 [facility] Naropin Naropin 2-0 No 5mg Common (Ropivacain (Ropivacain 9-08 S pirit e HCl) e HCl) 00:00: - CHI 00 [facility] Kenalog Kenalog 2021-0 No 40mg Common (Triamcinol (Triamcinol 9-08 S pirit one) one) 00:00: - CHI 00 [facility] Naropin Naropin 2-0 No 5mg Common (Ropivacain (Ropivacain 9-08 S pirit e HCl) e HCl) 00:00: - CHI 00 [facility] Kenalog Kenalog 2021-0 No 40mg Common (Triamcinol (Triamcinol 9-08 S pirit one) one) 00:00: - CHI 00 [facility] Naropin Naropin 2-0 No 5mg Common (Ropivacain (Ropivacain 9-08 S pirit e HCl) e HCl) 00:00: - CHI 00 [facility] Kenalog Kenalog 2021-0 No 40mg Common (Triamcinol (Triamcinol 9-08 S pirit one) one) 00:00: - CHI 00 [facility] Naropin Naropin 2021-0 No 5mg Common (Ropivacain (Ropivacain 9-08 S pirit e HCl) e HCl) 00:00: - CHI 00 [facility] Kenalog Kenalog 2021-0 No 40mg Common (Triamcinol (Triamcinol 9-08 S pirit one) one) 00:00: - CHI 00 [facility] traMADol traMADol 2021-0 No 1{table QD traMADol HCl 50 MG HCl 50 MG 8-23 t_as_ne HCl 50 MG 00:00: eded} 00 traMADol traMADol 2021-0 No 1{table QD traMADol HCl 50 MG HCl 50 MG 8-23 t_as_ne HCl 50 MG 00:00: eded} 00 traMADol traMADol 2021-0 No 1{table QD traMADol HCl 50 MG HCl 50 MG 8-23 t_as_ne HCl 50 MG 00:00: eded} 00 traMADol traMADol 2021-0 No 1{table QD traMADol [...] Comments Source height 2022-01-08 10:30:00 63 [in_i] Common S [facility] weight 2022-01-08 10:30:00 223 [lb_av] Common S pirit [facility] temperature 2022-01-08 10:30:00 97.5 [degF] Common S pirit - [facility] bmi 2022-01-08 10:30:00 39.5 kg/m2 Common S pirit - [facility] blood pressure 2022-01-08 10:30:00 112 mm[Hg] Common Spirit - systolic [facility] blood pressure 2022-01-08 10:30:00 70 mm[Hg] Common Spirit - diastolic [facility] height 2021-12-25 10:00:00 63 [in_i] Common S pirit [facility] weight 2021-12-25 10:00:00 223 [lb_av] Common S pirit [facility] bmi 2021-12-25 10:00:00 39.5 kg/m2 Common S pirit - [facility] height 2021-11-27 11:15:00 63 [in_i] Common S pirit [facility] weight 2021-11-27 11:15:00 223 [lb_av] Common S pirit [facility] temperature 2021-11-27 11:15:00 97.6 [degF] Common S pirit [facility] bmi 2021-11-27 11:15:00 39.5 kg/m2 Common S pirit [facility] blood pressure 2021-11-27 11:15:00 120 mm[Hg] Common Spirit - systolic [facility] blood pressure 2021-11-27 11:15:00 82 mm[Hg] Common Spirit - diastolic [facility] height 2021-11-10 08:30:00 63 [in_i] Common S pirit [facility] weight 2021-11-10 08:30:00 223.3 [lb_av] Common [facility] - [facility] temperature 2021-11-10 08:30:00 97.2 [degF] Common S pirit - [facility] bmi 2021-11-10 08:30:00 39.55 kg/m2 Common S pirit [facility] blood pressure 2021-11-10 08:30:00 132 mm[Hg] Common Spirit - systolic [facility] blood pressure 2021-11-10 08:30:00 84 mm[Hg] Common [facility] - diastolic [facility] height 2021-10-29 14:40:00 63 [in_i] Common S pirit [facility] weight 2021-10-29 14:40:00 220 [lb_av] Common S pirit - [facility] temperature 2021-10-29 14:40:00 97.5 [degF] Common S pirit [facility] bmi 2021-10-29 14:40:00 38.97 kg/m2 [facility] S [facility] oximetry 2021-10-29 14:40:00 97 % [facility] respiratory rate 2021-10-29 14:40:00 17 /min Comm on [facility] blood pressure 2021-10-29 14:40:00 130 mm[Hg] Common Spirit - systolic [facility] blood pressure 2021-10-29 14:40:00 74 mm[Hg] Common [facility] - diastolic [facility] height 2021-10-29 15:00:00 63 [in_i] Common [facility] weight 2021-10-29 15:00:00 220 [lb_av] [facility] temperature 2021-10-29 15:00:00 97.5 [degF] Common S pirit [facility] bmi 2021-10-29 15:00:00 38.97 kg/m2 Common S [facility] oximetry 2021-10-29 15:00:00 97 % Common S [facility] respiratory rate 2021-10-29 15:00:00 17 /min Comm on [facility] blood pressure 2021-10-29 15:00:00 130 mm[Hg] Common [facility] - systolic [facility] blood pressure 2021-10-29 15:00:00 74 mm[Hg] Common [facility] - diastolic [facility] height 2021-07-28 10:00:00 63 [in_i] Common [facility] weight 2021-07-28 10:00:00 214 [lb_av] Common [facility] temperature 2021-07-28 10:00:00 97.0 [degF] Common [facility] bmi 2021-07-28 10:00:00 37.9 kg/m2 Common S [facility] oximetry 2021-07-28 10:00:00 96 % Common [facility] respiratory rate 2021-07-28 10:00:00 16 /min Comm on [facility] blood pressure 2021-07-28 10:00:00 136 mm[Hg] Common [facility] - systolic [facility] blood pressure 2021-07-28 10:00:00 84 mm[Hg] Common [facility] - diastolic [facility] Procedures This patient has no known procedures. Encounters Start End Encounter Admission Attending Care Care Encounter Source Date/Time Date/Time Type Type Clinicians Facility Department ID 2022-01-11 Outpatient Collazo, STLMLC STLC [id number] Common 18:45:01 Mildred [facility] 2021-12-25 Outpatient Collazo, STLMLC STLC [id number] Common 08:15:02 Mildred [facility] 2021-12-08 Outpatient Collazo, STLMLC STLC [id number] Common 09:05:04 Mildred [facility] 2021-11-10 Outpatient Collazo, STLMLC STLMLC [id number] Common 10:54:02 Mildred [facility] 2021-11-03 Outpatient Collazo, STLMLC STLMLC [id number] Common 10:12:01 Mildred [facility] 2021-10-15 Outpatient Collazo, STLMLC STLC [id number] Common 08:21:01 Mildred [facility] 2021-10-09 Outpatient Collazo, STLMLC STLMLC [id number] Common 10:20:02 Mildred [facility] 2021-10-08 Outpatient Collazo, STLMLC STLMLC [id number] Common 08:40:03 Mildred [facility] 2021-07-28 Outpatient Collazo, STLMLC STLMLC [id number] Common 11:15:03 Mildred [facility] 2022-01-08 2022-01-08 OFFICE STLMLC STLMLC [id number] Co mmon 00:00:00 00:00:00 VISIT EST Spir it PT LEVEL 3 [facility] 2021-12-25 2021-12-25 OFFICE STLMLC STLMLC [id number] Co mmon 00:00:00 00:00:00 [facility]IT [facility] - [facility] LEVEL 4 [facility] 2021-12-11 2021-12-11 (TEL) STLMLC STLMLC [id number] Co mmon 00:00:00 00:00:00 [facility] 2021-11-27 2021-11-27 OFFICE STLMLC STLMLC [id number] Co mmon 00:00:00 00:00:00 [facility]ISIT [facility] PT - [facility] LEVEL 4 [facility] 2021-11-21 2021-11-21 CAV Sera [id number] CLAC [id number] [facility] 13:30:00 14:30:00 Iyanraule [id number] [facility] [id number] 2021-11-20 2021-11-20 (TEL) STLMLC STLMLC [id number] Co mmon 00:00:00 00:00:00 [facility] 2021-11-11 2021-11-11 (TEL) STLMLC STLMLC [id number] Co mmon 00:00:00 00:00:00 [facility] 2021-11-10 2021-11-10 Outpatient Iyanoye_S DMG DMG [id number] 00:00:00 00:00:00 [id number] [facility] 2021-11-10 2021-11-10 OFFICE STLMLC STLMLC [id number] Co mmon 00:00:00 00:00:00 VISIT NEW Spir it PT LEVEL 4 [facility] 2021-11-10 2021-11-10 (TEL) STLMLC STLMLC [id number] Co mmon 00:00:00 00:00:00 [facility] 2021-11-03 2021-11-03 (TEL) STLMLC STLMLC [id number] Co mmon 00:00:00 00:00:00 [facility] 2021-10-29 2021-10-29 OFFICE STLMLC STLMLC [id number] Co mmon 00:00:00 00:00:00 VISIT [facility] LEVEL 4 [facility] 2021-10-29 2021-10-29 (MCR WELL) STLMLC STLMLC [id number] Common 00:00:00 00:00:00 Medicare Spiri t [facility] 2021-10-27 2021-10-27 (TEL) STLMLC STLMLC [id number] Co mmon 00:00:00 00:00:00 [facility] 2021-10-03 2021-10-03 Outpatient DMG DMG [id number] [facility] 03:02:00 03:02:00 [id number] [facility] 2021-10-02 2021-10-02 Outpatient FERGUSON_CYNTHIA GANNON MEHOP [id number] [place] 04:37:00 04:37:00 HN [id number] da [facility] 2021-09-26 2021-09-26 (TEL) STLMLC STLMLC [id number] Co mmon 00:00:00 00:00:00 [facility] 2021-09-03 2021-09-03 (TEL) STLMLC STLMLC [id number] Co mmon 00:00:00 00:00:00 [facility] 2021-07-28 2021-07-28 [facility] [id number] Co mmon 00:00:00 00:00:00 VISIT [facility] PT LEVEL 4 [facility] 2021-06-25 2021-06-25 Outpatient DMG DMG [id number] [facility] 09:01:00 09:01:00 [id number] [facility] Results This patient has no known results.
--- NOTE | 2022-03-17 20:37 | EDPHYS ---
Physician Documentation [facility] Name: Mora Mccann Age: 52 yrs Sex: Female : 1970 Arrival Date: 03/17/2022 Time: 19:23 Bed IW3 Private MD: ED Physician Eriberto Esparza HPI: 03/17 19:46 This 52 yrs old Female presents to ER via Ambulatory with complaints of Knee jmm Pain. 19:46 The patient presents with pain. Onset: The symptoms/episode began/occurred gradually. jmm Modifying factors: The symptoms are alleviated by nothing. the symptoms are aggravated by movement. Associated signs and symptoms: Pertinent positives:. This is a 52-year-old female with history of diabetes mellitus, hyperlipidemia, hypertension the presents emerged part with complaints of left knee pain. Patient states the pain has worsened over the past few days. Denies any trauma. Pain is mainly anterior. Patient denies any history of DVT or blood clots. Denies any shortness of breath. Denies fever. Patient states she is had injections in the past in the same knee by Dr. Chan. 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 - Social history:: Smoking status: Patient denies any tobacco usage or history of. ROS: 19:46 Constitutional: Negative for fever, chills, and weight loss, Cardiovascular: Negative jmm for chest pain, palpitations, and edema, Respiratory: Negative for shortness of breath, cough, wheezing, and pleuritic chest pain. 19:46 MS/extremity: Positive for pain. 19:46 All other systems are negative. Exam: 19:46 Constitutional: This is a well developed, well nourished patient who is awake, alert, jmm and in no acute distress. Head/Face: atraumatic. Eyes: EOMI, no conjunctival erythema appreciated ENT: Moist Mucus Membranes Neck: Trachea midline, Supple Chest/axilla: Normal chest wall appearance and motion. Cardiovascular: Regular rate and rhythm. No edema appreciated Respiratory: Normal respirations, no respiratory distress appreciated Abdomen/GI: Non distended Back: Normal ROM Skin: General appearance color normal 19:46 Musculoskeletal/extremity: Mild anterior knee pain on palpation, mild painful extension, compartments are soft, full dorsalis pedis pulse, neurovascular intact. 19:46 Skin: Appearance: Color: normal in color. 19:46 Neuro: Orientation: is normal, Mentation: is normal, Memory: is normal. 19:46 Psych: Behavior/mood is pleasant, cooperative. Vital Signs: 19:43 BP 159 / 68; Pulse 72; Resp 16; Temp 98.5(O); Pulse Ox 98% on R/A; Weight 97.52 kg (R); ll3 Height 5 ft. 4 in. (162.56 cm) (R); Pain 10/10; 21:05 BP 143 / 66; Pulse 68; Resp 16; Pulse Ox 99% on R/A; ll3 19:43 Body Mass Index 36.90 (97.52 kg, 162.56 cm) ll3 MDM: 19:[address] [facility] 20:35 Data reviewed: vital signs, nurses notes. Counseling: I had a detailed discussion with nimisha the patient and/or guardian regarding: the historical points, exam findings, and any diagnostic results supporting the discharge/admit diagnosis, the need for outpatient follow up, to return to the emergency department if symptoms worsen or persist or if there are any questions or concerns that arise at home. ED course: Patient has no swelling, no chest pain or shortness of breath, no fever I do not currently suspect cellulitis, septic joint, DVT. Patient has had similar episodes in the past. I encouraged the patient to follow-up with Dr. Chan for reevaluation and patient was otherwise given strict return precautions. Patient understood agrees plan of care. 03/17 19:47 Order name: Knee Immobilizer; Complete Time: 21:03 [facility] Administered Medications: 21:03 Drug: Ketorolac 30 mg Route: IM; Site: right deltoid; ll3 21:04 Follow up: Response: Medication administered at discharge. 3 21:03 Drug: Lena (HYDROcodone-acetaminophen) 10 mg-325 mg 1 tabs Route: PO; ll3 21:04 Follow up: Response: Medication administered at discharge. 3 Disposition: 22:52 Co-signature as Attending Physician, Eriberto Esparza MD. rn Disposition Summary: 03/17/22 20:36 Discharge Ordered Location: Home [facility] Condition: Stable [facility] Diagnosis - Pain in left knee [facility] Followup: [facility] - With: Av Chan MD - When: 2 - 3 days - Reason: Recheck today's complaints, Continuance of care, Re-evaluation by your physician Discharge Instructions: - Discharge Summary Sheet [facility] - Acute Knee Pain, Adult [facility] Forms: - Medication Reconciliation Form [facility] - Thank You Letter [facility] - Antibiotic Education [facility] - Prescription Opioid Use [facility] Prescriptions: - Pepcid 20 mg Oral Tablet - take 1 tablet by ORAL route every 12 hours for 10 days; 20 tablet; Refills: 0, [facility] Product Selection Permitted - Diclofenac Sodium 75 mg Oral Tablet Sustained Release - take 1 tablet by ORAL route 2 times per day; 30 tablet; Refills: 0, Product [facility] Selection Permitted - orphenadrine citrate 100 mg Oral Tablet Sustained Release - take 1 tablet by ORAL route 2 times per day As needed; 20 tablet; Refills: 0, [facility] Product Selection Permitted Signatures: Ritchie Obrien PA PA [facility] Eriberto Esparza MD MD rn Alexey Costa RN RN ll3
--- NOTE | 2022-03-17 20:37 | ER ---
Nurse's Notes [facility] Name: Mora Mccann Age: 52 yrs Sex: Female : 1970 Arrival Date: 03/17/2022 Time: 19:23 Bed IW3 Private MD: Diagnosis: Pain in left knee Presentation: 03/17 19:43 Chief complaint: Patient states: C/o left knee pain X4 days, states pain is 10/10. ll3 Coronavirus screen: Vaccine status: Patient reports receiving the 2nd dose of the covid vaccine. At this time, the client does not indicate any symptoms associated with coronavirus-19. Ebola Screen: No symptoms or risks identified at this time. Initial Sepsis Screen: Does the patient meet any 2 criteria? No. Patient's initial sepsis screen is negative. Does the patient have a suspected source of infection? No. Patient's initial sepsis screen is negative. Risk Assessment: Do you want to hurt yourself or someone else? Patient reports no desire to harm self or others. Onset of symptoms was March 13, 2022. 19:43 Method Of Arrival: Ambulatory ll3 19:43 Acuity: SAMMI 4 ll3 [employer]ER: 19:44 LMP N/A - Hysterectomy ll3 Historical: - Allergies: 19:44 PENICILLINS; ll3 - PMHx: 19:44 diabetes mellitus; Hypercholesterolemia; Hypertensive disorder; thyroid disease; ll3 - PSHx: 19:44 None; ll3 - Immunization history:: Client reports receiving the 2nd dose of the Covid vaccine. - Social history:: Smoking status: Patient denies any tobacco usage or history of. Screenin:03 [facility] ED Fall Risk Assessment (Adult) History of falling in the last 3 months, ll3 including since admission No falls in past 3 months (0 pts) Confusion or Disorientation No (0 pts) Intoxicated or Sedated No (0 pts) Impaired Gait No (0 pts) Mobility Assist Device Used No (0 pt) Altered Elimination No (0 pt) Score/Fall Risk Level 0 - 2 = Low Risk Oriented to surroundings, Maintained a safe environment. Abuse screen: Denies threats or abuse. Denies injuries from another. Nutritional screening: No deficits noted. Tuberculosis screening: No symptoms or risk factors identified. Vital Signs: 19:43 BP 159 / 68; Pulse 72; Resp 16; Temp 98.5(O); Pulse Ox 98% on R/A; Weight 97.52 kg (R); ll3 Height 5 ft. 4 in. (162.56 cm) (R); Pain 10/10; 21:05 BP 143 / 66; Pulse 68; Resp 16; Pulse Ox 99% on R/A; ll3 19:43 Body Mass Index 36.90 (97.52 kg, 162.56 cm) ll3 ED Course: 19:23 Patient arrived in ED. ja2 19:44 Triage completed. ll3 19:44 Arm band placed on. 3 19:46 Ritchie Obrien PA is PHCP. [facility] 19:46 Eriberto Esparza MD is Attending Physician. [facility] 20:36 Av Chan MD is Referral Physician. [facility] 21:04 No provider procedures requiring assistance completed. Patient did not have IV access ll3 during this emergency room visit. 21:05 Patient has correct armband on for positive identification. Bed in low position. Call ll3 light in reach. Side rails up X 1. Administered Medications: 21:03 Drug: Ketorolac 30 mg Route: IM; Site: right deltoid; ll3 21:04 Follow up: Response: Medication administered at discharge. ll3 21:03 Drug: [place] (HYDROcodone-acetaminophen) 10 mg-325 mg 1 tabs Route: PO; ll3 21:04 Follow up: Response: Medication administered at discharge. ll3 Medication: 21:05 VIS not applicable for this client. ll3 Outcome: 20:36 Discharge ordered by . [facility] 21:04 Discharged to home ambulatory, with family. ll3 21:04 Condition: stable 21:04 Discharge instructions given to patient, family, Instructed on discharge instructions, follow up and referral plans. medication usage, Demonstrated understanding of instructions, follow-up care, medications, Prescriptions given X 3. 21:05 Patient left the ED. ll3 Signatures: Ritchie Obrien PA PA jmm Alexander, Jessica ja2 Loubet, Lynsea, RN RN 3
[2022-03-17] MEDS ORDERED: HYDROCODONE/APAP 10/325 TAB ONE (20:59)
[2022-03-17] MEDS ORDERED: KETOROLAC 30 MG/ML INJ ONE (20:59)
[2022-03-17 21:16] VITALS: TEMP 98.5
[2022-03-17 21:20] VITALS: BP 143/66; O2SAT 99
== END 2022-03-17 21:05 | disposition home or self-care (01) ==
LOC: ER 19:22
DX: M25.562 Pain in left knee (principal); Z88.0 Allergy status to penicillin
CPT/HCPCS: 96372; 99283

== ENCOUNTER 2022-04-15 11:05 | Day surgery (SDC) | payer MEDICARE ==
[2022-04-15] MEDS ORDERED: NA CHLORIDE 0.9% 1,000 ML ONE (11:32)
[2022-04-15] MEDS ORDERED: propofoL 200 MG/20 ML VIAL IV ONE (12:12)
[2022-04-15] MEDS ORDERED: BUPIVACAINE 0.25% PF 10 ML VIAL ONE (12:12)
[2022-04-15] MEDS ORDERED: MIDAZOLAM HCL 2 MG/2 ML INJ ONE (12:12)
[2022-04-15] MEDS ORDERED: LIDOCAINE 2% MPF 5 ML VIAL ONE (12:13)
[2022-04-15] MEDS ORDERED: LIDOCAINE 1% 20 ML MDV ONE (12:13)
[2022-04-15] MEDS: TRIAMCINOLONE ACETON 40 MG/ML VIAL ONE ×2 (12:47→12:48)
--- NOTE | 2022-04-15 13:15 | RAD REPORT ---
EXAM DESCRIPTION: RAD - Fluoroscopy <1 Hour - 04/15/2022 1:09 pm CLINICAL HISTORY: LEFT SI JOINT INJECTION/ LEFT THROCHANTERIC BURSITIS INJ COMPARISON: CT MULTIPLANAR RECONSTRUCTION dated 09/28/2013 FINDINGS: Fluoroscopy time: 0.3 minutes.
[2022-04-15 13:28] VITALS: TEMP 97.6; O2SAT 100
[2022-04-15 13:37] VITALS: BP 142/72
== END 2022-04-15 13:35 | disposition home or self-care (01) ==
LOC: OR 11:05
PROVIDERS: ATTEND Pain Medicine Interventional Pain Medicine
PROC: 0S9B3ZZ Drainage of Left Hip Joint, Percutaneous Approach (ICD-10-PCS; principal; 2022-04-15 12:30)
DX: M70.62 Trochanteric bursitis, left hip (principal); M46.1 Sacroiliitis, not elsewhere classified; M25.552 Pain in left hip
CPT/HCPCS: 82947; 20610; 77002; J2704; J2001 ×2; J3301; J2250; J7030; Q9967; 76000

== ENCOUNTER 2022-07-15 16:39 | Emergency (ER) | payer MEDICARE ==
--- OUTSIDE RECORDS SUMMARY | 2022-07-15 16:44 | XMS REPORT | Continuity of Care Document ---
:1970 Author Organization [facility] t Address [address] [place] [address] Care Team Providers Name Role Phone Mildred Collazo Attending Clinician Unavailable Toby -Nancy Ojeda Attending Clinician Carmen Bautista Attending Clinician Radha Attending Clinician Unavailable ALEXANDER Attending Clinician Unavailable Radha Admitting Clinician Unavailable ALEXANDER Admitting Clinician Unavailable Payers Payer Name Policy Type Policy Number Effective Date Expiration Date clifton [facility] [employer] [id number] 2021 (MEDICARE 00:00:00 REPLACEMENT HMO) Problems Condition Condition Condition Status Onset Resolution Last Treating Co mments Source Name Details Category Date Date Treatment Clinician Date [id number] Primary Problem Comm on osteoarthr Spirit itis of - [facility] left knee [facility] [id number] Type 2 Problem Common diabetes Spirit mellitus - [facility]I with [facility] [id number] Type 2 Problem Commo n 9102 diabetes Spirit mellitus - CHI with other diabetic 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 mon (current) Spirit use of - [facility] insulin [facility] [id number] Mixed Problem Common hyperlipid Spirit emia - [facility] [id number] Lumbago Problem Commo n with Spirit sciatica, - CHI left side [facility] [id number] Essential Problem Comm on (primary) Spirit hypertensi - CHI on [facility] [id number] Glaucoma Problem Commo n of both Spirit eyes, - [facility]I unspecifie d glaucoma [facility] Allergies, Adverse Reactions, Alerts Allergy Allergy Status Severity Reaction(s) Onset Inactive Treating Comm ents Source Name Type Date Date Clinician [id number] Drug Active Unknown Common 85 allergy [facility] Social History Social Habit Start Date Stop Date Quantity Comments Source History of Tobacco Use Co mmon [facility] Sex Assigned At Com mon [facility] Smoking Status Start Date Stop Date Source Never Smoker Common [facility] Medications Ordered Filled Start Stop Current Ordering Indication Dosage Frequency Signature Comments Components Source Medication Medication Date Date Medication? Clinician (SIG) Name Name [employer] No 15mg Com 04-20 00:00: - [facility] Bupivicaine Bupivicaine No 2.5mg Common Odin Odin 04-13 00:: - [facility] Orthovisc Orthovisc No 30mg Com 04-13 Spirit 00:00: - [facility] Kenalog Kenalog No 40mg Common (Triamcinol (Triamcinol 04-13 S pirit one) one) 00:00: - [facility] Bupivicaine Bupivicaine No 2.5mg Common Odin Odin 04-13 00:00: - [facility] Orthovisc Orthovisc No 30mg Com 04-13 00:00: - [facility] Kenalog Kenalog 2023-0 No 40mg Common (Triamcinol (Triamcinol 1-23 S pirit one) one) 00:00: - [facility]I 00 [facility] OrthoVisc OrthoVisc 2022-0 3- No 2{ml} OrthoVisc 30 MG/2ML 30 MG/2ML 04-02 30 MG/2ML 00:00: 00:00 00 :00 OrthoVisc OrthoVisc 2022-0 3- No 2{ml} OrthoVisc 30 MG/2ML 30 MG/2ML 04-02 30 MG/2ML 00:00: 00:00 00 :00 OrthoVisc OrthoVisc 2022-0 3- No 2{ml} OrthoVisc 30 MG/2ML 30 MG/2ML 04-02 30 MG/2ML 00:00: 00:00 00 :00 Diclofenac Diclofenac 2022-0 No 1{table BID Diclofenac Sodium 75 Sodium 75 1-04 t_as_ne Sodium 75 MG MG 00:00: eded} MG 00 Diclofenac Diclofenac 2022-0 No 1{table BID Diclofenac Sodium 75 Sodium 75 1-04 t_as_ne Sodium 75 MG MG 00:00: eded} MG 00 Diclofenac Diclofenac 2022-0 No 1{table BID Diclofenac Sodium 75 Sodium 75 1-04 t_as_ne Sodium 75 MG MG 00:00: eded} MG 00 Diclofenac Diclofenac 2022-0 No 1{table BID Diclofenac Sodium 75 Sodium 75 1-04 t_as_ne Sodium 75 MG MG 00:00: eded} MG 00 Levothyroxi Levothyroxi 2021-03 No QD [...] MG 00:00: 40 MG 00 Naropin Naropin 0 No 5mg Common (Ropivacain (Ropivacain 9-08 S pirit e HCl) e HCl) 00:00: - [facility] Kenalog Kenalog 0 No 40mg Common (Triamcinol (Triamcinol 9-08 S pirit one) one) 00:00: - [facility] Naropin Naropin 0 No 5mg Common (Ropivacain (Ropivacain 9-08 S pirit e HCl) e HCl) 00:00: - [facility] Kenalog Kenalog 2022-0 No 40mg Common (Triamcinol (Triamcinol 9-08 S pirit one) one) 00:00: - [facility]I 00 [facility] Naropin Naropin 2-0 No 5mg Common (Ropivacain (Ropivacain 9-08 S pirit e HCl) e HCl) 00:00: - CHI 00 [facility] Kenalog Kenalog 2021-0 No 40mg Common (Triamcinol (Triamcinol 9-08 S pirit one) one) 00:00: - [facility]I 00 [facility] Naropin Naropin 2-0 No 5mg Common (Ropivacain (Ropivacain 9-08 S pirit e HCl) e HCl) 00:00: - CHI 00 [facility] Kenalog Kenalog 2021-0 No 40mg Common (Triamcinol (Triamcinol 9-08 S pirit one) one) 00:00: - CHI 00 [facility] Naropin Naropin 2-0 No 5mg Common (Ropivacain (Ropivacain 9-08 S pirit e HCl) e HCl) 00:00: - CHI 00 [facility] Kenalog Kenalog 2021-0 No 40mg Common (Triamcinol (Triamcinol 9-08 S pirit one) one) 00:00: - CHI 00 [facility] Naropin Naropin 2-0 No 5mg Common (Ropivacain (Ropivacain 9-08 S pirit e HCl) e HCl) 00:00: - CHI 00 [facility] Kenalog Kenalog 2021-0 No 40mg Common (Triamcinol (Triamcinol 9-08 S pirit one) one) 00:00: - CHI 00 [facility] Naropin Naropin 2-0 No 5mg Common (Ropivacain (Ropivacain 9-08 S pirit e HCl) e HCl) 00:00: - CHI 00 [facility] Kenalog Kenalog 2-0 No 40mg Common (Triamcinol (Triamcinol 9-08 S pirit one) one) 00:00: - CHI 00 [facility] Naropin Naropin 2-0 No 5mg Common (Ropivacain (Ropivacain 9-08 S pirit e HCl) e HCl) 00:00: - CHI 00 [facility] Abisaialog Kenalog 2021-0 No 40mg Common (Triamcinol (Triamcinol 9-08 S pirit one) one) 00:00: - CHI 00 [facility] Naropin Naropin 2-0 No 5mg Common (Ropivacain (Ropivacain 9-08 S pirit e HCl) e HCl) 00:00: - CHI 00 [facility] Abisaialog Kenalog 2021-0 No 40mg Common (Triamcinol (Triamcinol 9-08 S pirit one) one) 00:00: - CHI 00 [facility] Naropin Naropin 2-0 No 5mg Common (Ropivacain (Ropivacain 9-08 S pirit e HCl) e HCl) 00:00: - CHI 00 [facility] Kosta Kenalog 2021-0 No 40mg Common (Triamcinol (Triamcinol 9-08 S pirit one) one) 00:00: - CHI 00 [facility] Naropin Naropin 2-0 No 5mg Common (Ropivacain (Ropivacain 9-08 S pirit e HCl) e HCl) 00:00: - CHI 00 [facility] Kosta Baronealog 2021-0 No 40mg Common (Triamcinol (Triamcinol 9-08 S pirit one) one) 00:00: - CHI 00 [facility] traMADol traMADol 2021-0 No 1{table QD traMADol [...] 50 MG 00:00: eded} 00 traMADol traMADol 2022-0 No 1{table QD traMADol HCl 50 MG [...] FlexPen 100 FlexPen UNIT/ML UNIT/ML 100 UNIT/ML Carvedilol Carvedilol No 1{table BID Carvedilol 12.5 MG 12.5 MG t_with_ 12.5 MG food} Latanoprost Latanoprost No 1{drop_ QD Latanopros 0.005 % 0.005 % into_af t 0.005 % fected_ eye_in_ the_eve david} Gabapentin Gabapentin No Gabapentin 300 MG 300 MG 300 MG Spironolact Spironolact No 1{table QD Spironolac one-HCTZ one-HCTZ t} tone-HCTZ 25-25 MG 25-25 MG 25-25 MG Tresiba Tresiba No BID Tresiba FlexTouch FlexTouch FlexTouch 200 UNIT/ML 200 UNIT/ML 200 UNIT/ML Lisinopril Lisinopril No Lisinopril 40 MG 40 MG 40 MG PriLOSEC PriLOSEC No PriLOSEC Ondansetron Ondansetron No Ondansetro HCl HCl n HCl Diclofenac Diclofenac No Diclofenac Sodium Sodium Sodium Latanoprost Latanoprost No 1{drop_ QD Latanopros 0.005 % 0.005 % into_af t 0.005 % fected_ eye_in_ the_eve david} Gabapentin Gabapentin No Gabapentin 300 MG 300 MG 300 MG Carvedilol Carvedilol No 1{table BID Carvedilol 12.5 MG 12.5 MG t_with_ 12.5 MG food} Atorvastati Atorvastati No Atorvastat n Calcium n Calcium in Calcium 40 MG 40 MG 40 MG Tresiba Tresiba No BID Tresiba FlexTouch FlexTouch FlexTouch 200 UNIT/ML 200 UNIT/ML 200 UNIT/ML NovoLOG NovoLOG No NovoLOG FlexPen 100 FlexPen 100 FlexPen UNIT/ML UNIT/ML 100 UNIT/ML Ondansetron Ondansetron No Ondansetro HCl HCl n HCl Diclofenac Diclofenac No Diclofenac Sodium Sodium Sodium Spironolact Spironolact No 1{table QD Spironolac one-HCTZ one-HCTZ t} tone-HCTZ 25-25 MG 25-25 MG 25-25 MG Lisinopril Lisinopril No Lisinopril 40 MG 40 MG 40 MG PriLOSEC PriLOSEC No PriLOSEC Lisinopril Lisinopril No Lisinopril 40 MG 40 MG 40 MG Tresiba Tresiba No BID Tresiba FlexTouch FlexTouch FlexTouch 200 UNIT/ML 200 UNIT/ML 200 UNIT/ML Spironolact Spironolact No 1{table QD Spironolac one-HCTZ one-HCTZ t} tone-HCTZ 25-25 MG 25-25 MG 25-25 MG Diclofenac Diclofenac No Diclofenac Sodium Sodium Sodium Atorvastati Atorvastati No Atorvastat n Calcium n Calcium in Calcium 40 MG 40 MG 40 MG PriLOSEC PriLOSEC No PriLOSEC Gabapentin Gabapentin No Gabapentin 300 MG 300 MG 300 MG Latanoprost Latanoprost No 1{drop_ QD Latanopros 0.005 % 0.005 % into_af t 0.005 % fected_ eye_in_ the_eve david} Ondansetron Ondansetron No Ondansetro HCl HCl n HCl NovoLOG NovoLOG No NovoLOG FlexPen 100 FlexPen 100 FlexPen UNIT/ML UNIT/ML 100 UNIT/ML Carvedilol Carvedilol No 1{table BID Carvedilol 12.5 MG 12.5 MG t_with_ 12.5 MG food} Ondansetron Ondansetron No Ondansetro HCl HCl n HCl Tresiba Tresiba No BID Tresiba FlexTouch FlexTouch FlexTouch 200 UNIT/ML 200 UNIT/ML 200 UNIT/ML Spironolact Spironolact No 1{table QD Spironolac one-HCTZ one-HCTZ t} tone-HCTZ 25-25 MG 25-25 MG 25-25 MG NovoLOG NovoLOG No NovoLOG FlexPen 100 FlexPen 100 FlexPen UNIT/ML UNIT/ML 100 UNIT/ML Atorvastati Atorvastati No Atorvastat n Calcium n Calcium in Calcium 40 MG 40 MG 40 MG Gabapentin Gabapentin No Gabapentin 300 MG 300 MG 300 MG PriLOSEC PriLOSEC No PriLOSEC Lisinopril Lisinopril No Lisinopril 40 MG 40 MG 40 MG Latanoprost Latanoprost No 1{drop_ QD Latanopros 0.005 % 0.005 % into_af t 0.005 % fected_ eye_in_ the_eve david} Carvedilol Carvedilol No 1{table BID Carvedilol 12.5 MG 12.5 MG t_with_ 12.5 MG food} Tresiba Tresiba No BID Tresiba FlexTouch FlexTouch [...] Observation Time Observation Value Comments Source height 2022-04-20 08:45:00 63 [in_i] [facility] weight 2022-04-20 08:45:00 230 [lb_av] [facility] temperature 2022-04-20 08:45:00 97.8 [degF] [facility] bmi 2022-04-20 08:45:00 40.74 kg/m2 [facility] blood pressure 2022-04-20 08:45:00 136 mm[Hg] [facility] - systolic [facility] blood pressure 2022-04-20 08:45:00 86 mm[Hg] [facility] - diastolic [facility] height 2022-04-13 08:30:00 63 [in_i] Common S pirit - [facility] weight 2022-04-13 08:30:00 230 [lb_av] Common S pirit - [facility] temperature 2022-04-13 08:30:00 98.1 [degF] Common S pirit - [facility] bmi 2022-04-13 08:30:00 40.74 kg/m2 Common S pirit - [facility] blood pressure 2022-04-13 08:30:00 134 mm[Hg] Common [facility] - systolic [facility] blood pressure 2022-04-13 08:30:00 84 mm[Hg] Common [facility] - diastolic [facility] height 2022-03-25 08:30:00 63 [in_i] Common S pirit - [facility] weight 2022-03-25 08:30:00 230 [lb_av] Common S pirit [facility] temperature 2022-03-25 08:30:00 98.1 [degF] Common S pirit - [facility] bmi 2022-03-25 08:30:00 40.74 kg/m2 Common S pirit - [facility] blood pressure 2022-03-25 08:30:00 138 mm[Hg] Common [facility] - systolic [facility] blood pressure 2022-03-25 08:30:00 86 mm[Hg] [facility] - diastolic [facility] height 2022-01-08 10:30:00 63 [in_i] Common S pirit - [facility] weight 2022-01-08 10:30:00 223 [lb_av] Common S pirit - [facility] temperature 2022-01-08 10:30:00 97.5 [degF] Common S pirit - [facility] bmi 2022-01-08 10:30:00 39.5 kg/m2 Common S pirit - [facility] blood pressure 2022-01-08 10:30:00 112 mm[Hg] [facility] - systolic [facility] blood pressure 2022-01-08 10:30:00 70 mm[Hg] [facility] - diastolic [facility] height 2021-12-25 10:00:00 63 [in_i] Common S pirit - [facility] weight 2021-12-25 10:00:00 223 [lb_av] Common S pirit - [facility] bmi 2021-12-25 10:00:00 39.5 kg/m2 Common S pirit - [facility] height 2021-11-27 11:15:00 63 [in_i] Common S pirit [facility] weight 2021-11-27 11:15:00 223 [lb_av] Common S pirit - [facility] temperature 2021-11-27 11:15:00 97.6 [degF] Common S pirit - [facility] bmi 2021-11-27 11:15:00 39.5 kg/m2 Common S pirit - [facility] blood pressure 2021-11-27 11:15:00 120 mm[Hg] [facility] - systolic [facility] blood pressure 2021-11-27 11:15:00 82 mm[Hg] [facility] - diastolic [facility] height 2021-11-10 08:30:00 63 [in_i] Common S pirit - [facility] weight 2021-11-10 08:30:00 223.3 [lb_av] Common Spirit - [facility] temperature 2021-11-10 08:30:00 97.2 [degF] Common S pirit [facility] bmi 2021-11-10 08:30:00 39.55 kg/m2 Common S pirit - [facility] blood pressure 2021-11-10 08:30:00 132 mm[Hg] [facility] - systolic [facility] blood pressure 2021-11-10 08:30:00 84 mm[Hg] [facility] - diastolic [facility] height 2021-10-29 14:40:00 63 [in_i] [facility] weight 2021-10-29 14:40:00 220 [lb_av] Common [facility] temperature 2021-10-29 14:40:00 97.5 [degF] Common S pirit [facility] bmi 2021-10-29 14:40:00 38.97 kg/m2 Common S pirit [facility] oximetry 2021-10-29 14:40:00 97 % Common [facility] respiratory rate 2021-10-29 14:40:00 17 /min Comm on [facility] blood pressure 2021-10-29 14:40:00 130 mm[Hg] Common [facility] - systolic [facility] blood pressure 2021-10-29 14:40:00 74 mm[Hg] [facility] - diastolic [facility] height 2021-10-29 15:00:00 63 [in_i] Common S [facility] weight 2021-10-29 15:00:00 220 [lb_av] Common [facility] temperature 2021-10-29 15:00:00 97.5 [degF] Common S pirit [facility] bmi 2021-10-29 15:00:00 38.97 kg/m2 [facility] oximetry 2021-10-29 15:00:00 97 % Common S [facility] respiratory rate 2021-10-29 15:00:00 17 /min Comm on [facility] blood pressure 2021-10-29 15:00:00 130 mm[Hg] Common [facility] - systolic [facility] blood pressure 2021-10-29 15:00:00 74 mm[Hg] Common [facility] - diastolic [facility] height 2021-07-28 10:00:00 63 [in_i] [facility] weight 2021-07-28 10:00:00 214 [lb_av] Common [facility] temperature 2021-07-28 10:00:00 97.0 [degF] Common [facility] bmi 2021-07-28 10:00:00 37.9 kg/m2 Common [facility] oximetry 2021-07-28 10:00:00 96 % Common [facility] respiratory rate 2021-07-28 10:00:00 16 /min Comm on [facility] blood pressure 2021-07-28 10:00:00 136 mm[Hg] Common [facility] systolic [facility] blood pressure 2021-07-28 10:00:00 84 mm[Hg] Common [facility] diastolic [facility] Procedures This patient has no known procedures. Encounters Start End Encounter Admission Attending Care Care Encounter Source Date/Time Date/Time Type Type Clinicians Facility Department ID 2022-06-30 Outpatient Collazo, STLMLC STLMLC [id number] Common 07:49:00 Mildred [id number] [facility] 2022-06-25 Outpatient Collazo, STLMLC STLMLC [id number] Common 14:26:00 Mildred [id number] [facility] 2022-04-10 Outpatient Collazo, STLMLC STLMLC [id number] Common 08:32:05 Mildred 02315 [facility] 2022-03-25 Outpatient Collazo, STLMLC STLMLC [id number] Common 10:56:02 Mildred 32910 [facility] 2022-03-24 Outpatient Collazo, STLMLC STLMLC [id number] Common 09:11:05 Mildred [id number] [facility] 2022-01-11 Outpatient Collazo, STLMLC STLMLC [id number] Common 18:45:01 Mildred [facility] 2021-12-25 Outpatient Collazo, STLMLC STLMLC [id number] Common 08:15:02 Mildred [facility] 2021-12-08 Outpatient Collazo, STLMLC STLMLC [id number] Common 09:05:04 Mildred [facility] 2021-11-10 Outpatient Collazo, STLMLC STLMLC [id number] Common 10:54:02 Mildred [facility] 2021-11-03 Outpatient Collazo, STLMLC STLMLC [id number] Common 10:12:01 Mildred [facility] 2021-10-15 Outpatient Collazo, STLMLC STLMLC [id number] Common 08:21:01 Mildred [facility] 2021-10-09 Outpatient Clolazo, STLMLC STLMLC [id number] Common 10:20:02 Mildred [facility] 2021-10-08 Outpatient Collazo, STLMLC STLMLC [id number] Common 08:40:03 Mildred [facility] 2021-07-28 Outpatient Collazo, STLMLC STLMLC [id number] Common 11:15:03 Mildred [facility] 2022-07-08 2022-07-08 FLAVIA Cruz [id number] CLAC [id number] [facility] 14:30:00 15:30:00 Luis [id number] [facility] [id number] 2022-04-20 2022-04-20 (IN/ASP) STLMLC STLMLC [id number] C ommon 00:00:00 00:00:00 INJ ASP [facility] 2022-04-13 2022-04-13 (IN/ASP) STLMLC STLMLC [id number] C ommon 00:00:00 00:00:00 INJ ASP [facility] 2022-04-01 2022-04-01 (TEL) STLMLC STLMLC [id number] Co mmon 00:00:00 00:00:00 [facility] 2022-03-25 2022-03-25 OFFICE STLMLC STLMLC [id number] Co mmon 00:00:00 00:00:00 VISIT Spirit ESTAB PT - CHI LEVEL 4 [facility] 2022-01-08 2022-01-08 OFFICE STLMLC STLMLC [id number] Co mmon 00:00:00 00:00:00 VISIT EST Spir it PT LEVEL 3 - CHI [facility] 2021-12-25 2021-12-25 OFFICE STLMLC STLMLC [id number] Co mmon 00:00:00 00:00:00 VISIT [facility] ESTAB PT - CHI LEVEL 4 [facility] 2021-12-11 2021-12-11 (TEL) STLMLC STLMLC [id number] Co mmon 00:00:00 00:00:00 [facility] 2021-11-27 2021-11-27 OFFICE STLMLC STLMLC [id number] Co mmon 00:00:00 00:00:00 VISIT [facility] ESTAB PT - CHI LEVEL 4 [facility] 2021-11-21 2021-11-21 CAV Sera [id number] CLAC [id number] [facility] 13:30:00 14:30:00 Lily [id number] [facility] [id number] 2021-11-20 2021-11-20 (TEL) STLMLC STLMLC [id number] Co mmon 00:00:00 00:00:00 [facility] 2021-11-11 2021-11-11 (TEL) STLMLC STLMLC [id number] Co mmon 00:00:00 00:00:00 [facility] 2021-11-10 2021-11-10 Outpatient Iyanladonna_Alaina TERRELLG DMG [id number] 00:00:00 00:00:00 [id number] [facility] 2021-11-10 2021-11-10 OFFICE STLMLC STLMLC [id number] Co mmon 00:00:00 00:00:00 VISIT NEW Spir it PT LEVEL 4 - [facility] 2021-11-10 2021-11-10 (TEL) STLMLC STLMLC [id number] Co mmon 00:00:00 00:00:00 [facility] 2021-11-03 2021-11-03 (TEL) STLMLC STLMLC [id number] Co mmon 00:00:00 00:00:00 [facility] 2021-10-29 2021-10-29 OFFICE STLMLC STLMLC [id number] Co mmon 00:00:00 00:00:00 VISIT [facility] PT - CHI LEVEL 4 [facility] 2021-10-29 2021-10-29 (MCR WELL) STLMLC STLMLC [id number] Common 00:00:00 00:00:00 Medicare Spiri t Wellness [facility] 2021-10-27 2021-10-27 (TEL) STLMLC STLMLC [id number] Co mmon 00:00:00 00:00:00 [facility] 2021-10-03 2021-10-03 Outpatient DMG DMG [id number] [facility] 03:02:00 03:02:00 [id number] [facility] 2021-10-02 2021-10-02 Outpatient COLEEN_CYNTHIA GANNON [facility] [address] [place] 04:37:00 04:37:00 HN 0714 da [facility] 2021-09-26 2021-09-26 (TEL) STLMLC STLMLC [id number] Co mmon 00:00:00 00:00:00 [facility] 2021-09-03 2021-09-03 (TEL) STLMLC STLMLC [id number] Co mmon 00:00:00 00:00:00 [facility] 2021-07-28 2021-07-28 OFFICE STLMLC STLMLC [id number] Co mmon 00:00:00 00:00:00 VISIT NEW Spir it PT LEVEL 4 - [facility] 2021-06-25 2021-06-25 Outpatient DMG DMG [id number] [facility] 09:01:00 09:01:00 [id number] [facility] Results This patient has no known results.
[2022-07-15] MEDS ORDERED: HYDROCODONE/APAP 7.5/325 MG TAB ONE (17:04)
--- NOTE | 2022-07-15 17:26 | ER ---
Nurse's Notes [facility] Name: Mora Mccann Age: 52 yrs Sex: Female : 1970 Arrival Date: 07/15/2022 Time: 16:39 Bed 12 Private MD: Diagnosis: Pain in right knee Presentation: 07/15 16:47 Chief complaint: Patient states: she started having right knee pain at approx 3pm today ap3 after hearing a "pop". patient reports the pain increases when she straightens her leg out. Coronavirus screen: At this time, the client does not indicate any symptoms associated with coronavirus-19. Ebola Screen: No symptoms or risks identified at this time. Initial Sepsis Screen: Does the patient meet any 2 criteria? No. Patient's initial sepsis screen is negative. Does the patient have a suspected source of infection? No. Patient's initial sepsis screen is negative. Risk Assessment: Do you want to hurt yourself or someone else? Patient reports no desire to harm self or others. Onset of symptoms was July 15, 2022. 16:47 Method Of Arrival: Ambulatory ap3 16:49 Acuity: SAMMI 4 ap3 Triage Assessment: 16:49 General: Appears uncomfortable, Behavior is calm, cooperative, appropriate for age. ap3 Pain: Complains of pain in right knee Pain currently is 10 out of 10 on a pain scale. Pain began suddenly, 1 hour ago. Neuro: Level of Consciousness is awake, alert, obeys commands, Oriented to person, place, time, situation. Cardiovascular: Patient's skin is warm and dry. Respiratory: Airway is patent Respiratory effort is even, unlabored, Respiratory pattern is regular, symmetrical. TOWEL DISTRIBUTOR: 16:49 LMP N/A - Hysterectomy ap3 Historical: - Allergies: 16:48 PENICILLINS; ap3 - PMHx: 16:48 diabetes mellitus; Hypercholesterolemia; Hypertensive disorder; thyroid disease; ap3 - Immunization history:: Client reports receiving the 2nd dose of the Covid vaccine. - Social history:: Smoking status: Patient denies any tobacco usage or history of. Screenin:49 Abuse screen: Denies threats or abuse. Nutritional screening: No deficits noted. ap3 Tuberculosis screening: No symptoms or risk factors identified. 17:04 [facility] ED Fall Risk Assessment (Adult) History of falling in the last 3 months, nj1 including since admission No falls in past 3 months (0 pts) Confusion or Disorientation No (0 pts) Intoxicated or Sedated No (0 pts) Impaired Gait No (0 pts) Mobility Assist Device Used No (0 pt) Altered Elimination No (0 pt) Score/Fall Risk Level 0 - 2 = Low Risk Oriented to surroundings, Maintained a safe environment, Hourly rounding (assess needs \\T\\ fall precautionary measures) done. Assessment: 17:04 Reassessment: Patient appears in no apparent distress at this time. Patient and/or nj1 family updated on plan of care and expected duration. Pain level reassessed. Patient is alert, oriented x 3, equal unlabored respirations, skin warm/dry/pink. Pain: Complains of pain in right knee Pain currently is 10 out of 10 on a pain scale. 17:04 Reassessment: See triage assessment. nj1 18:00 Reassessment: Patient appears in no apparent distress at this time. Patient and/or nj1 family updated on plan of care and expected duration. Pain level reassessed. Patient is alert, oriented x 3, equal unlabored respirations, skin warm/dry/pink. Vital Signs: 16:47 Pulse 76; Resp 17; Temp 97.9; Pulse Ox 100% ; Weight 95.25 kg; Height 5 ft. 4 in. ; ap3 Pain 10/10; 16:49 BP 104 / 50; ap3 18:00 BP 111 / 44; Pulse 74; Resp 18; Pulse Ox 100% on R/A; Pain 7/10; nj1 16:47 Body Mass Index 36.05 (95.25 kg, 162.56 cm) ap3 16:47 Pain Scale: Adult ap3 18:00 Pain Scale: Adult nj1 ED Course: 16:42 Patient arrived in ED. rg4 16:42 Evans Duvall, NOHELIA is PHCP. pm1 16:42 Eriberto Esparza MD is Attending Physician. pm1 16:49 Triage completed. ap3 16:49 Arm band placed on left wrist. ap3 16:56 Xi Collins, RUPINDER is Primary Nurse. nj1 17:04 Patient has correct armband on for positive identification. Bed in low position. Call [facility] light in reach. Side rails up X 1. 17:20 Knee Right 3 View XRAY In Process Unspecified. EDMS 17:50 Crutch training done. Knee immobilizer applied on right knee. nj1 18:00 No provider procedures requiring assistance completed. nj1 18:00 Patient did not have IV access during this emergency room visit. nj1 Administered Medications: 17:04 Drug: Hydrocodone-Acetaminophen PO (7.5 mg-325 mg) 1 tabs Route: PO; nj1 17:30 Follow up: Response: No adverse reaction nj1 Medication: 18:00 VIS not applicable for this client. nj1 Outcome: 17:25 Discharge ordered by MD. pm1 18:03 Discharged to home with crutches. nj1 18:03 Condition: stable 18:03 Discharge instructions given to patient, Instructed on discharge instructions, follow up and referral plans. medication usage, safety practices, crutch walking, Demonstrated understanding of instructions, follow-up care, medications, crutch walking. 18:19 Patient left the ED. nj1 Signatures: Dispatcher [employer] EDMA Evans Duvall NP BUTADIENE CONVERTER HELPER pm1 Sheila Ogden 4 Lilliana Murrell RN RN ap3 Xi Collins RN RN nj1 Corrections: (The following items were deleted from the chart) 17:08 17:07 Reassessment: See triage assessment nj1 nj1
--- NOTE | 2022-07-15 17:26 | EDPHYS ---
Physician Documentation [facility] Name: Mora Mccann Age: 52 yrs Sex: Female : 1970 Arrival Date: 07/15/2022 Time: 16:39 Bed 12 Private MD: ED Physician Eriberto Esparza HPI: 07/15 16:51 This 52 yrs old Female presents to ER via Ambulatory with complaints of Right pm1 knee Pain. 16:51 The patient presents with pain, that is acute. The complaints affect the posterior pm1 aspect of right knee. Context: The problem was sustained at home, resulted from Getting up from sitting position and walking, the patient can fully bear weight, the patient is able to ambulate, with moderate difficulty, Problem is a result from a previous injury: No. Onset: The symptoms/episode began/occurred today. Modifying factors: the symptoms are aggravated by weight bearing, Extending right knee. Associated signs and symptoms: Pertinent negatives calf tenderness, numbness, tingling, weakness. Treatment prior to arrival includes: no previous treatment. Severity of symptoms: in the emergency department the symptoms are unchanged. The patient has not experienced similar symptoms in the past. The patient has not recently seen a physician, has an appointment scheduled, In 2 weeks for her left chronic knee pain with Dr. Chan. 52-year-old female presents to the ER with complaints of right knee pain. Patient was getting up from seated position walked 3 steps and felt a pop. Complaining of posterior right knee pain that is worsened with extending her leg straight and weightbearing. 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 - Social history:: Smoking status: Patient denies any tobacco usage or history of. ROS: 16:51 Constitutional: Negative for fever, chills, and weight loss, Cardiovascular: Negative pm1 for chest pain, palpitations, and edema, Respiratory: Negative for shortness of breath, cough, wheezing, and pleuritic chest pain. 16:51 Skin: Negative for injury, rash, and discoloration, Neuro: Negative for headache, weakness, numbness, tingling, and seizure. 16:51 MS/extremity: Positive for pain, of the posterior aspect of right knee, Negative for deformity. 16:51 All other systems are negative. Exam: 16:51 Constitutional: This is a well developed, well nourished patient who is awake, alert, pm1 and in no acute distress. Head/Face: Normocephalic, atraumatic. 16:51 Skin: Warm, dry with normal turgor. Normal color with no rashes, no lesions, and no evidence of cellulitis. 16:51 Cardiovascular: Exam negative for acute changes. 16:51 Respiratory: Exam negative for acute changes, respiratory distress, shortness of breath. 16:51 Musculoskeletal/extremity: Extremities: grossly normal except: noted in the posterior aspect of right knee: tenderness, Pain with passive extension of the knee. Negative for valgus and varus stress test. Negative for anterior and posterior drawer test, There is no evidence of contusion, Calves: are non-tender. 16:51 Neuro: Exam negative for acute changes, Orientation: is normal, Mentation: is normal, Motor: is normal, moves all fours. Vital Signs: 16:47 Pulse 76; Resp 17; Temp 97.9; Pulse Ox 100% ; Weight 95.25 kg; Height 5 ft. 4 in. ; ap3 Pain 10/10; 16:49 BP 104 / 50; ap3 18:00 BP 111 / 44; Pulse 74; Resp 18; Pulse Ox 100% on R/A; Pain 7/10; nj1 16:47 Body Mass Index 36.05 (95.25 kg, 162.56 cm) ap3 16:47 Pain Scale: Adult ap3 18:00 Pain Scale: Adult nj1 MDM: 16:51 Data reviewed: vital signs. pm1 16:51 Patient medically screened. pm1 16:55 Differential diagnosis: dislocation, closed fracture, tendonitis, Knee sprain, pm1 arthritis. 16:55 Care significantly affected by the following chronic conditions: Diabetes, Hypertension.pm1 17:01 ED course: PMPaware reviewed. Patient with 30 pills of tramadol prescribed on pm1 05/26/[address] Chan. 17:22 Independent interpretation of the following test(s) in the Emergency Department X-Ray: pm1 My interpretation is Negative for fracture or dislocation. 17:22 Counseling: I had a detailed discussion with the patient and/or guardian regarding: the pm1 historical points, exam findings, and any diagnostic results supporting the discharge/admit diagnosis, radiology results, the need for outpatient follow up, a orthopedic surgeon, to return to the emergency department if symptoms worsen or persist or if there are any questions or concerns that arise at home, Patient has appointment for follow up on chronic pain for left knee, advised to have evaluation for acute right knee pain sooner with Dr Chan. Will discharge to home with knee immobilizer, crutches, and pain medications. 17:35 ED course: Discussed with patient possibly need sprain to right knee as result of left pm1 knee pain for the past 4 months. Patient right leg bearing a majority patient's total weight weight as a result of left knee pain. Mild medial joint space narrowing present on x-ray per radiology. 07/15 16:47 Order name: Knee Right 3 View XRAY; Complete Time: 17:35 pm1 07/15 16:47 Order name: Knee Immobilizer; Complete Time: 17:59 pm1 07/15 16:47 Order name: Crutches; Complete Time: 17:59 pm1 Administered Medications: 17:04 Drug: Hydrocodone-Acetaminophen PO (7.5 mg-325 mg) 1 tabs Route: PO; nj1 17:30 Follow up: Response: No adverse reaction nj1 Disposition: 18:28 Co-signature as Attending Physician, Eriberto Esparza MD I reviewed the patient's care rn provided by the Advanced Practice Provider and agree with the diagnosis and treatment plan. Disposition Summary: 07/15/22 17:25 Discharge Ordered Location: Home pm1 Problem: new pm1 Symptoms: have improved pm1 Condition: Stable pm1 Diagnosis - Pain in right knee pm1 Followup: pm1 - With: Emergency Department - When: As needed - Reason: Worsening of condition Followup: pm1 - With: Private Physician - When: 2 - 3 days - Reason: Recheck today's complaints, Continuance of care, Re-evaluation by your physician Discharge Instructions: - Discharge Summary Sheet pm1 - Crutch Use, Adult pm1 - How to Use a Knee Immobilizer pm1 - Acute Knee Pain, Adult pm1 Forms: - Medication Reconciliation Form pm1 - Thank You Letter pm1 - Antibiotic Education pm1 - Prescription Opioid Use pm1 Prescriptions: - acetaminophen-codeine 300-30 mg Oral tablet - take 2 tablet by ORAL route every 6 hours As needed; 20 tablet; Refills: 0, pm1 Product Selection Permitted Signatures: Dispatcher [employer] EDMS Eriberto Esparza MD MD rn Marinas, Patrick, NP DRIVER HELPER pm1 Lilliana Murrell RN RN ap3 Xi Collins RN RN nj1 Corrections: (The following items were deleted from the chart) 17:37 17:35 ED course: Discussed with patient possibly need sprain to right knee as result of pm1 left knee pain for the past 4 months. Patient right leg bearing a majority patient's total weight weight as a result of left knee pain. . pm1
--- NOTE | 2022-07-15 17:33 | RAD REPORT ---
EXAM DESCRIPTION: RAD - Knee Right 3 View - 07/15/2022 5:18 pm CLINICAL HISTORY: Right knee pain FINDINGS: No fracture or dislocation is seen. Mild medial joint space narrowing. No significant joint effusion
[2022-07-15 19:01] VITALS: TEMP 97.9; O2SAT 100
[2022-07-15 19:03] VITALS: BP 111/44
== END 2022-07-15 18:19 | disposition home or self-care (01) ==
LOC: ER 16:39
DX: M25.561 Pain in right knee (principal)
CPT/HCPCS: 99284

== ENCOUNTER 2022-09-16 09:55 | Day surgery (SDC) | payer MEDICARE ==
[2022-09-14 14:53] LABS: Absolute Lymphocytes (CBC) 1.7 K/uL (0.7-4.9); MCV 90.8 fL (80-100); MPV 8.9 fL (7.6-11.3); RBC Red Blood Cell Count 3.63 M/uL (3.86-4.86)
[2022-09-14 14:57] LABS: Protime INR 0.96
[2022-09-14 15:10] LABS: Potassium 4.9 mEq/L (3.5-5.1)
--- NOTE | 2022-09-14 15:49 | RAD REPORT ---
EXAM DESCRIPTION: Freddy Oakley And Carlos (2 Views)09/14/2022 2:36 pm CLINICAL HISTORY: Preop for knee surgery. Hypertension COMPARISON: 2021 FINDINGS: The lungs appear clear of acute infiltrate. The heart is normal size IMPRESSION: No acute abnormalities displayed
--- NOTE | 2022-09-15 20:39 | EKG ---
Test Date: 2022-09-14 Test Time: 14:26:31 Stitch Marker: TRIPP MEASUREMENT RESULTS: Intervals: Rate: 69 IA: 168 QRSD: 84 QT: 412 QTc: 441 Redmon: P: 34 IA: 168 QRS: -4 T: 19 INTERPRETIVE STATEMENTS: Normal sinus rhythm Normal ECG Compared to ECG 02/09/2022 13:50:56 Myocardial infarct finding no longer present Electronically Signed On 09-15-22 20:33:13 CDT by Ivan Brown
[2022-09-16] MEDS ORDERED: NA CHLORIDE 0.9% 1,000 ML ONE ×2 (10:22→11:44)
[2022-09-16] MEDS ORDERED: CLINDAMYCIN 600MG/D5W 50 ML IV ONE (10:22)
[2022-09-16] MEDS ORDERED: LIDOCAINE 2% MPF 5 ML VIAL ONE (10:35)
[2022-09-16] MEDS ORDERED: propofoL 200 MG/20 ML VIAL IV ONE (10:35)
[2022-09-16] MEDS ORDERED: FENTANYL CITR 100 MCG/2 ML ONE (10:35)
[2022-09-16] MEDS ORDERED: dexAMETHasone 4 MG/ML VIAL ONE (10:35)
[2022-09-16] MEDS ORDERED: MIDAZOLAM HCL 2 MG/2 ML INJ ONE (10:35)
[2022-09-16] MEDS ORDERED: ONDANSETRON 4 MG/2 ML VIAL ONE (10:35)
[2022-09-16] MEDS ORDERED: BUPIVACAINE 0.25% PF 30 ML VIAL ONE (10:43)
--- NOTE | 2022-09-16 11:50 | P.BOP ---
Preoperative diagnosis: right knee medial meniscus tear, right knee osteoarthritis Postoperative diagnosis: same Primary procedure: right knee arthroscopic partial medial meniscectomy Hvac Journeyman: NONE,NONE Estimated blood loss: 5 cc Specimen: none Findings: see dictation Anesthesia: General Complications: None Implants: none Fluids & blood products: per anesthesia record; TT: 25 mins @ 300 mmHg Transferred to: Recovery Room Condition: Good
[2022-09-16] MEDS: FENTANYL CITR 100 MCG/2 ML ONE ×4 (12:06→12:23)
[2022-09-16] MEDS: HYDROMORPHONE HCL 1 MG/ML INJ ONE ×2 (12:28→12:35)
[2022-09-16 12:53] VITALS: BP 107/41; TEMP 98.2; O2SAT 96
[2022-09-16] MEDS ORDERED: HYDROCODONE/APAP 5/325 MG TAB ONE (13:12)
--- NOTE | 2022-09-16 14:34 | OP ---
Date of Procedure: 09/16/2022 Surgeon: Av Chan MD Preoperative Diagnoses: 1.Right knee medial meniscus tear. 2.Right knee osteoarthritis. Postoperative Diagnoses: 1.Right knee medial meniscus tear. 2.Right knee osteoarthritis. Procedure Performed: Right knee arthroscopic partial medial meniscectomy. Anesthesia: General LMA. Fluids: Per Anesthesia record. Estimated Blood Loss: 5 cc. Complications: None. Implants: None. Tourniquet Time: 25 minutes at 300 mmHg. Indication For Procedure: Mora is a 52-year-old female, who presented to my clinic with signs, symp toms, and MRI findings consistent with right knee medial meniscus tear as well as right knee osteoart hritis. I discussed with the patient at length risks and benefits associated with operative and nono perative treatment. She expressed understanding and elected to proceed with operative treatment. Description Of Procedure: After informed consent was obtained, the patient was identified in the pre operative holding area. The right lower extremity was marked. The patient was then brought back to the operating room, transferred to the operating table in supine fashion, placed under general LMA an esthesia. The right lower extremity was then prepped and draped in usual sterile fashion. A time-ou t was initiated. The correct patient and procedure performed and identified. The patient did receiv e preoperative prophylactic antibiotics. The right lower extremity was exsanguinated and tourniquet was inflated to 300 mmHg. Standard anteromedial and anterolateral portals were created. Arthroscope was brought in via the anterolateral portal and diagnostic arthroscopy was performed. 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 The arthroscope was then brought in the medial and lateral gutters. There were no l oose bodies within the gutters. The arthroscope was then brought in the medial compartment. The pat ient was noted to have a complex tear of the posterior horn of the medial meniscus. A partial medial meniscectomy was performed using meniscal biters and arthroscopic shaver to smooth meniscal borders. The patient was also noted to have some grade 3 and 4 chondromalacia changes of the medial femoral condyle as well as medial tibial plateau. The arthroscope was brought into the intercondylar notch. The patient was noted to have an intact ACL and PCL. The arthroscope was then brought in the latera l compartment where the patient was noted to have stable lateral meniscus without significant tear as well as some grade 2 chondromalacia changes noted. The arthroscopic instruments were then removed w ithout complication. Wounds were then irrigated thoroughly with normal saline. The portals were kamran roximated using a 4-0 Monocryl. Sterile dressings were applied. Tourniquet was let down. The patie nt was awakened and transferred to PACU in stable condition. Postoperative Plan: The patient will be weightbearing as tolerated. She will follow up in 1 week fo r wound check. We discussed possible viscosupplementation injections in the future should any pain r emaining from her osteoarthritis. CV/MODL Voice ID: [id number] Report ID: [id number]
== END 2022-09-16 13:40 | disposition home or self-care (01) ==
LOC: OR 09:55
PROVIDERS: ATTEND Orthopaedic Surgery Sports Medicine
PROC: 0SBC4ZZ Excision of Right Knee Joint, Percutaneous Endoscopic Approach (ICD-10-PCS; principal; 2022-09-16 11:00)
DX: S83.241A Other tear of medial meniscus, current injury, right knee, initial encounter (principal); M17.11 Unilateral primary osteoarthritis, right knee
CPT/HCPCS: 93005; 85025; 80048; 36415; 85610; 82947 ×2; 85730; 71046; 29881; J2704; J1100; J2001; J2250; J3010 ×2; J1170; J2405; J7030 ×2